=== PATIENT | female | born 1940 | race Caucasian/White ===

== ENCOUNTER 2016-11-01 12:09 | Inpatient (IN) | payer MEDICARE ==
[~2016-11-01] VITALS: Ht 170.2 cm; Wt 56.7 kg
[~2016-11-01 12:09] MED LIST: CLEOCIN HCL300 MG PO
[2016-11-01 13:13] LABS: BASOPHILS 0.2 % (0-2); EOSINOPHILS 3.5 % (0-7); HEMATOCRIT 36.6 % (36.0-48.0); HEMOGLOBIN 12.1 g/dL (12-16); IMMATURE GRANULOCYTES 0.5 % (0-5); LYMPHOCYTES 11.7 % (15-50); MCH 29.3 pg (26.0-34.0); MCHC 33.1 g/dL (31.0-37.0); MCV 88.6 fL (80.0-100.0); MEAN PLATELET VOLUME 8.5 fL (7.4-10.4); MONOCYTES 13.7 % (2-11); NEUTROPHILS 70.4 % (40-80); PLATELET COUNT 582 10x3/uL (130-400); RBC 4.13 10x6/uL (4.00-5.40); RDW 12.8 % (11.5-14.5); WBC 10.3 10x3/uL (4.8-10.8)
[2016-11-01 13:26] LABS: ALBUMIN 2.5 g/dL (3.4-5.0); ALKALINE PHOSPHATASE 71 U/L (46-116); ALT (SGPT) 12 U/L (10-68); BILIRUBIN - TOTAL 0.29 mg/dL (0.2-1.3); CALC OSMOLALITY 277 mosm/kg (275-300); CALCIUM 8.9 mg/dL (8.5-10.1); CARBON DIOXIDE 31.5 mmol/L (21.0-32.0); CHLORIDE - SERUM 102 mmol/L (98-107); CREATININE - SERUM 0.7 mg/dL (0.6-1.3); GLUCOSE 105 mg/dL (74-106); POTASSIUM - SERUM 3.6 mmol/L (3.5-5.1); PROTEIN - SERUM 6.5 g/dL (6.4-8.2); SODIUM 138 mmol/L (136-145); UREA NITROGEN 18 mg/dL (7-18); eGFR NON AFRICAN AMERICAN 86 mL/min (90-120)
[2016-11-01 16:24] LABS: APPEARANCE HAZY (CLEAR); BILIRUBIN NEGATIVE (NEGATIVE); COLOR YELLOW (YELLOW); GLUCOSE NEGATIVE (NEGATIVE); KETONE SMALL mg/dL (NEGATIVE); LEUKOCYTE ESTERASE TRACE (NEGATIVE); NITRITE NEGATIVE (NEGATIVE); PROTEIN NEGATIVE (NEGATIVE); SPECIFIC GRAVITY 1.015 (1.005-1.020); UROBILINOGEN NORMAL (NORMAL)
[2016-11-01 16:26] LABS: BACTERIA MODERATE /hpf (NONE SEEN); EPITHELIAL CELLS 0-5 /hpf (0-5); RED CELLS - URINE 0-5 /hpf (0-5); WHITE CELLS - URINE 0-5 /hpf (0-5)
[2016-11-01 20:00] VITALS: BP 103/58
[2016-11-01] MEDS ORDERED: PERCOCET 7.5/321 TAB PO (22:33)
[2016-11-01] MEDS ORDERED: NEURONTIN 300300 MG PO (22:33)
[2016-11-01] MEDS ORDERED: ALENDRONATE SOD35 MG PO (22:34)
--- NOTE | 2016-11-01 22:51 | NUR ---
MED REC, PHARMACY, AND ADULT HISTORY COMPLETED. PATIENT RECIEVED 4MG MORPHINE AT 2034 FOR BACK PAIN. IT WAS HELPFUL BUT WOKE UP WITH A C/O OF BACK SPASAMS. ER DOC CALLED AND 5MG VALIUM IM WAS ORDERED AND GIVEN.
[2016-11-01 23:52] VITALS: BP 126/73
[2016-11-02 03:58] VITALS: BP 121/75
--- NOTE | 2016-11-02 04:52 | NUR ---
RESTING QUIETLY WITH EYES CLOSED. NO SIGNS OF DISTRESS NOTED. BED IN LOWEST POSITION, CALL LIGHT IN REACH. BED RAILS UP X'S 2.
[2016-11-02 05:59] VITALS: BMI 19.6
--- NOTE | 2016-11-02 07:00 | NUR ---
PT REC'D FROM CLAUDIA FERGUSON. RESTING IN BED IN SUPINE POSITION. AAOX4. RATING CURRENT PAIN IN LOWER BACK 11/24. WILL REASSESS. REGULAR HEART RATE AND RHYTHM. LUNG SOUNDS CLEAR AND EQUAL BILAT. BOWEL SOUNDS ACTIVE X4 QUADS. PIV TO R AC FREE OF REDNESS AND SWELLING. REQUESTING "SOMETHING FOR SPASMS." TOLD PATIENT I WOULD CHECK HER MAR AND GIVE HER SOMETHING IF IT WAS ORDERED. BED LOW, CALL LIGHT IN REACH, DENIES NEEDS. CPOC.
[2016-11-02 08:44] LABS: BASOPHILS 0.2 % (0-2); HEMATOCRIT 36.7 % (36.0-48.0); IMMATURE GRANULOCYTES 0.9 % (0-5); LYMPHOCYTES 11.9 % (15-50); MCH 29.1 pg (26.0-34.0); MCHC 32.7 g/dL (31.0-37.0); MCV 89.1 fL (80.0-100.0); MONOCYTES 14.4 % (2-11); NEUTROPHILS 68.6 % (40-80); PLATELET COUNT 545 10x3/uL (130-400); RBC 4.12 10x6/uL (4.00-5.40); WBC 10.9 10x3/uL (4.8-10.8)
[2016-11-02 08:55] LABS: ALBUMIN 2.4 g/dL (3.4-5.0); ALKALINE PHOSPHATASE 68 U/L (46-116); ALT (SGPT) 10 U/L (10-68); BILIRUBIN - TOTAL 0.27 mg/dL (0.2-1.3); CALC OSMOLALITY 278 mosm/kg (275-300); CALCIUM 8.7 mg/dL (8.5-10.1); CHLORIDE - SERUM 102 mmol/L (98-107); CREATININE - SERUM 0.6 mg/dL (0.6-1.3); GLUCOSE 94 mg/dL (74-106); POTASSIUM - SERUM 4.2 mmol/L (3.5-5.1); PROTEIN - SERUM 5.7 g/dL (6.4-8.2); SODIUM 139 mmol/L (136-145); UREA NITROGEN 15 mg/dL (7-18); eGFR NON AFRICAN AMERICAN > 90 mL/min (90-120)
[2016-11-02 09:02] VITALS: BP 114/69
--- NOTE | 2016-11-02 09:35 | NUR ---
PRN FLEXERIL ADMINSTERED PER PT COMPLAINTS OF BACK SPASMS. WILL REASSESS. BOX ALARM APPLIED TO PT AT THIS TIME. EXPLAINED TO HER THAT SHE HAS TO WEAR THIS JUST DUE TO THE FACT THAT SHE IS ON NARCOTICS, IS WEAK DUE TO HER BACK PAIN, AND BECAUSE OF HER AGE. PT STATES SHE UNDERSTANDS. ASKED PT IF SHE COULD TOLERATE ME PUTTING ON HER SCD'S. PT STATED, "I'M DORSIFLEXING AND PLANTAR FLEXING. ISN'T THAT ENOUGH?" EXPLAINED TO PT THAT WE NEEDED TO HAVE SOMETHING FOR DVT PROPHYLAXIS SINCE SHE WAS NOT TAKING ANY TYPE OF MEDICATIONS FOR THAT. PT STATED SHE COULD NOT DO IT RIGHT NOW SINCE SHE WAS HURTING. SCD'S PLACED ON NIGHTSTAND AND I TOLD PT WE WOULD NEED TO LATER. BED LOW, CALL LIGHT IN REACH, DENIES NEEDS. CPOC.
[2016-11-02 12:44] VITALS: BP 130/73
--- NOTE | 2016-11-02 13:45 | NUR ---
ATTEMTPED TO CONTACT PER PT REQUEST. NO ANSWER, BUT VOICEMAIL LEFT.
[2016-11-02 15:36] VITALS: BP 120/70
--- NOTE | 2016-11-02 16:00 | NUR ---
PT RESTING IN BED WITH COMPLAINTS OF BACK SPASMS AT THIS TIME, INFORMED PTS NURSE AT THIS TIME. BED IN LOW POSITION AND CALL LIGHT WITHIN REACH. WILL CONTINUE TO MONITOR.
--- NOTE | 2016-11-02 16:45 | NUR ---
PRN MORPHINE ADMINISTERED PER PT COMPLAINTS OF 9/10 BACK PAIN. WILL REASSESS. RESTING IN BED IN SUPINE POSITION. BED LOW, CALL LIGHT IN REACH, DENIES NEEDS. CPOC.
[2016-11-02 19:00] VITALS: BP 138/67
[2016-11-03] VITALS: BP 134/65
--- NOTE | 2016-11-03 02:00 | NUR ---
PT RESTING QUIETLY, EYES CLOSED. RESP EVEN, UNLABORED. NO DISTRESS NOTED.
[2016-11-03 04:00] VITALS: BP 126/81
[2016-11-03 07:30] LABS: BASOPHILS 0.2 % (0-2); EOSINOPHILS 3.6 % (0-7); HEMATOCRIT 35.6 % (36.0-48.0); HEMOGLOBIN 11.5 g/dL (12-16); IMMATURE GRANULOCYTES 0.9 % (0-5); LYMPHOCYTES 10.4 % (15-50); MCH 28.8 pg (26.0-34.0); MCHC 32.3 g/dL (31.0-37.0); MCV 89.2 fL (80.0-100.0); MEAN PLATELET VOLUME 9.2 fL (7.4-10.4); MONOCYTES 11.9 % (2-11); PLATELET COUNT 544 10x3/uL (130-400); RBC 3.99 10x6/uL (4.00-5.40); RDW 13.1 % (11.5-14.5)
[2016-11-03 08:04] LABS: CALC OSMOLALITY 273 mosm/kg (275-300); CALCIUM 8.7 mg/dL (8.5-10.1); CARBON DIOXIDE 25.4 mmol/L (21.0-32.0); CHLORIDE - SERUM 101 mmol/L (98-107); CREATININE - SERUM 0.5 mg/dL (0.6-1.3); GLUCOSE 79 mg/dL (74-106); POTASSIUM - SERUM 3.4 mmol/L (3.5-5.1); SODIUM 137 mmol/L (136-145); UREA NITROGEN 14 mg/dL (7-18); eGFR NON AFRICAN AMERICAN > 90 mL/min (90-120)
--- NOTE | 2016-11-03 09:38 | NUR ---
PATIENT ALERT IN LOW ARENAS POSITION. PLACED ON BEDPAN PER REQUEST. INSTRUCTED TO PUSH CALL BUTTON WHEN FINISHED. STATES UNDERSTANDING. CALL LIGHT IN HAND. BED IN LOW POSITION. SIDE RAILS UP X2.
[2016-11-03 09:41] VITALS: BP 118/67
[2016-11-03 12:33] VITALS: BP 120/75
[2016-11-03 17:38] VITALS: BP 121/70
[2016-11-03 20:00] VITALS: BP 111/70
--- NOTE | 2016-11-03 22:35 | NUR ---
REC'D LYING FLAT IN BED. ALERT AND ORIENTED X4. REPORTED PAIN 10/10 IN BACK. WILL ADMIN PM/AM MEDS PRESCRIBED. INSTRUCTED TO CALL IF NEEDED ANYTHING, VERBALIZED UNDERSTANDING. WILL CONT TO MONITOR. DENIED FURTHER NEEDS AT THIS TIME.
[2016-11-04] VITALS: BP 124/68
--- NOTE | 2016-11-04 01:54 | NUR ---
PT RESTING QUIETLY, EYES CLOSED. RESP EVEN, UNLABORED. NO DISTRESS NOTED. CONTINUE CUSTOM SHOEMAKER'S PLAN OF CARE.
[2016-11-04 04:00] VITALS: BP 137/61
[2016-11-04 05:51] LABS: BASOPHILS 0.3 % (0-2); EOSINOPHILS 3.4 % (0-7); HEMOGLOBIN 11.6 g/dL (12-16); LYMPHOCYTES 10.2 % (15-50); MCH 28.9 pg (26.0-34.0); MCHC 32.2 g/dL (31.0-37.0); MCV 89.8 fL (80.0-100.0); MONOCYTES 14.1 % (2-11); PLATELET COUNT 508 10x3/uL (130-400); RBC 4.01 10x6/uL (4.00-5.40); WBC 11.3 10x3/uL (4.8-10.8)
[2016-11-04 06:12] LABS: CALC OSMOLALITY 270 mosm/kg (275-300); CALCIUM 9.2 mg/dL (8.5-10.1); CARBON DIOXIDE 27.4 mmol/L (21.0-32.0); CHLORIDE - SERUM 100 mmol/L (98-107); GLUCOSE 85 mg/dL (74-106); POTASSIUM - SERUM 3.7 mmol/L (3.5-5.1); SODIUM 136 mmol/L (136-145); UREA NITROGEN 13 mg/dL (7-18); eGFR NON AFRICAN AMERICAN 86 mL/min (90-120)
[2016-11-04 06:13] LABS: CREATININE - SERUM 0.7 mg/dL (0.6-1.3)
--- NOTE | 2016-11-04 07:15 | NUR ---
PATIENT IN BED WITH IV INTACT. ASSISTED OFF OF BEDPAN AT THIS TIME. COMPLAINTS OF PAIN TO LOWER BACK. STATED LINE ERECTOR APPRENTICE IS GOING TO SPEAK TO PHYSICIAN FOR MORE PAIN MEDS. CALL LIGHT WITHIN REACH.
--- NOTE | 2016-11-04 07:30 | NUR ---
PT ASSESSMENT COMPLETE NO ACUTE DISTRESS NOTED VOICES ALL NEEDS TO STAFF PT WITH INTRACTABLE BACK PAIN NOTED WILL TREAT FOR PAIN PER ORDER. AND DISCUSS PAIN RELEIF WITH RESORT HOUSEKEEPER TODAY PER REPORT OF BOTH PT AND NURSE FROM LAST SHIFT PT HAS SEVERE PAIN UNRELEIVED WITH PAIN MEDS
[2016-11-04 09:32] VITALS: BP 129/77
--- NOTE | 2016-11-04 11:28 | NUR ---
Rehab Note- Acute Rehab Prescreen order received. Reviewed the patient's medical record. Awaiting Neurosurgeon consult. Will follow at this time. Spoke with EBEN Aguila. Thank you for this referral! Priaynka Baum RN Clinical Liaison, [facility] Rehab
--- NOTE | 2016-11-04 11:34 | NUR ---
PT WITH INTRACTABLE BACK PAIN HAVING SPASMS NOT RELEIVED WITH PAIN MEDS OR FLEXERIL. ALL ADLS PER STAFF TOTAL CARE DUE TO PAIN.
--- NOTE | 2016-11-04 11:43 | NUR ---
Patient Name: DEBBY WRIGHT Admission Status: ER Accout number: [id number] Admission Date: 11-03-2016 : 1940 Admission Diagnosis: Attending: SARAH Current LOS: 1 Anticipated DC Date: 11-07-2016 Planned Disposition: Inpatient Rehab Primary Insurance: MEDICARE A & B Discharge Planning Comments: CM SPOKE WITH PATIENT REGARDING D/C NEEDS AND PLANS. PATIENT STATED SHE LIVES WITH HER SPOUSE (VIKRAM) AND HE WILL DRIVE HER HOME WHEN DISCHARGED HOME. PATIENT HAS 3 STEPS TO ENTER HOME AND STAIRCASE W/RAILS TO DOWNSTAIRS INSIDE HOME. PATIENT STATED SHE WAS INDEPENDENT BEFORE HER SURGERY AND HAS A WALKER, WHEELCHAIR, BS COMMODE, AND SHOWER CHAIR AT HOME. PATIENTS PCP IS DR. GUERRERO IN [place] AND [facility] AT [facility] IS HER PHARMACY. PATIENT HAD OP BACK SURGERY AT [facility] RECENTLY. PATIENT IS WANTING IP REHAB AT DISCHARGE. CM WILL CONTINUE TO FOLLOW PATIENT WITH D/C NEEDS AND PLANS. PCP DR. YOLANDA CASTRO AT [facility] [phone] VIKRAM (SPOUSE) [phone] Surveyor Geophysical Prospecting: Ayla Cochran Is the patient Alert and Oriented? Yes 0 * How many steps to enter\exit or inside your home? 3 0 * PCP DR. GUERRERO IN [place] 0 * Pharmacy [facility] 0 * Preadmission Environment Home with Family 0 * ADLs Independent 0 * Equipment Bedside Commode Shower Chair Walker Wheelchair 0 * List name and contact numbers for known caregivers / representatives who currently or will assist patient after discharge: VIKRAM (SPOUSE) [phone] 0 * Additional services required to return to the preadmission environment? Yes 0 * Can the patient safely return to the preadmission environment? Yes 0 * Has this patient been hospitalized within the prior 30 days at any hospital? No 0 Grand Total: 0
--- NOTE | 2016-11-04 11:43 | NUR ---
RECIEVED NEW ORDER FOR TORADOL GIVEN IV PER ORDER. TOLERATED WELL. WILL MONITOR EFFECTIVENESS.
[2016-11-04 11:58] VITALS: BP 143/77
[2016-11-04 15:29] VITALS: Ht 170.2 cm; Wt 56.7 kg
--- NOTE | 2016-11-04 17:18 | NUR ---
PT HAS RESTED WELL SINCE DOSING OF TORADOL. WILL MONITOR.
[2016-11-04 19:00] VITALS: BP 113/68
[2016-11-05] VITALS (10 sets, daily range): BP systolic 104–128; BP diastolic 57–73
--- NOTE | 2016-11-05 00:09 | NUR ---
REC'D LYING RESTING IN BED. ALERT AND ORIENTED X4. NO DISTRESS NOTED. IS WANTING SOMETHING FOR PAIN. WILL ADMIN MEDS PRESCRIBED. INSTRUCTED TO CALL IF NEEDED ANYTHING. WILL HAVE KYPHOPLASTY IN AM. CONSENTS ARE SIGNED AND ON CHART. DR. BRINK CAME BY AND SPOKE TO HER ABOUT THE PROCEDURE. WILL CONT TO MONITOR. BED LOW, LOCKED, CALL LIGHT IN REACH. ALARM ON.
[2016-11-05 06:13] LABS: BASOPHILS 0.2 % (0-2); EOSINOPHILS 3.2 % (0-7); HEMATOCRIT 34.1 % (36.0-48.0); HEMOGLOBIN 11.3 g/dL (12-16); IMMATURE GRANULOCYTES 0.4 % (0-5); LYMPHOCYTES 9.6 % (15-50); MCH 29.2 pg (26.0-34.0); MCHC 33.1 g/dL (31.0-37.0); MCV 88.1 fL (80.0-100.0); MONOCYTES 10.7 % (2-11); NEUTROPHILS 75.9 % (40-80); PLATELET COUNT 494 10x3/uL (130-400); RBC 3.87 10x6/uL (4.00-5.40); WBC 10.6 10x3/uL (4.8-10.8)
[2016-11-05 06:24] LABS: CALC OSMOLALITY 266 mosm/kg (275-300); CALCIUM 8.9 mg/dL (8.5-10.1); CHLORIDE - SERUM 100 mmol/L (98-107); CREATININE - SERUM 0.4 mg/dL (0.6-1.3); GLUCOSE 99 mg/dL (74-106); POTASSIUM - SERUM 3.4 mmol/L (3.5-5.1); SODIUM 134 mmol/L (136-145); UREA NITROGEN 11 mg/dL (7-18); eGFR NON AFRICAN AMERICAN > 90 mL/min (90-120)
--- NOTE | 2016-11-05 06:35 | NUR ---
EYES CLOSED RESPIRATIONS WITH EASE AND UNLABORED.
--- NOTE | 2016-11-05 11:31 | NUR ---
PT ASLEEP ON BACK IN BED RESP EVEN AND NONLABORED IV TO FOREARM PATENT AND INTACT AT THIS TIME SRX2 BED AT LOWEST SETTING CALL LIGHT WITHIN REACH WILL CONTINUED TO MONITOR
--- NOTE | 2016-11-05 15:09 | NUR ---
OT NOTE: ATTEMPTED TO SEE PT IN PM, HOWEVER, SHE WAS EXTREMELY DROWSY; UNABLE TO AROUSE PT
--- NOTE | 2016-11-05 20:00 | NUR ---
Received patient in bed, alert and oriented x 4, oxygen is not on at this time, is on room air, respirations easy and regular. Has three 1cm incisions on right knee, scabbed over, dry and each has a suture in place, all are open to air, no dressing. Incisions are well approximated, healing well. Denies any pain or discomfort at this time.
--- NOTE | 2016-11-06 00:36 | NUR ---
Given Tylenol 650mg po PRN and Robaxin 750mg po PRN at this time for back pain and right hip pain with spasms. Patient rates severity as 8/10. Will monitor for effectiveness.
--- NOTE | 2016-11-06 01:30 | NUR ---
Patient sleeping, eyes closed, respirations unlabored, PRNs given earlier deemed effective.
[2016-11-06 04:00] VITALS: BP 112/62
--- NOTE | 2016-11-06 04:00 | NUR ---
Given Morphine 4mg IV as patient states the pain and spasms in back and right hip have returned, cannot resettle to sleep. Rates severity as 7/10.
--- NOTE | 2016-11-06 05:00 | NUR ---
Patient resting quietly, drowsy and reports Morphine is effective for pain relief.
[2016-11-06 05:37] LABS: BASOPHILS 0.1 % (0-2); EOSINOPHILS 3.7 % (0-7); HEMOGLOBIN 10.5 g/dL (12-16); IMMATURE GRANULOCYTES 0.6 % (0-5); LYMPHOCYTES 10.7 % (15-50); MCH 29.2 pg (26.0-34.0); MCHC 32.8 g/dL (31.0-37.0); MCV 88.9 fL (80.0-100.0); MEAN PLATELET VOLUME 9.2 fL (7.4-10.4); MONOCYTES 11.9 % (2-11); PLATELET COUNT 508 10x3/uL (130-400); RDW 12.9 % (11.5-14.5); WBC 8.6 10x3/uL (4.8-10.8)
[2016-11-06 05:44] LABS: CALCIUM 8.4 mg/dL (8.5-10.1); CHLORIDE - SERUM 101 mmol/L (98-107); GLUCOSE 95 mg/dL (74-106); POTASSIUM - SERUM 3.8 mmol/L (3.5-5.1); SODIUM 137 mmol/L (136-145)
[2016-11-06 05:56] LABS: CALC OSMOLALITY 271 mosm/kg (275-300); CREATININE - SERUM 0.6 mg/dL (0.6-1.3); UREA NITROGEN 7 mg/dL (7-18); eGFR NON AFRICAN AMERICAN > 90 mL/min (90-120)
--- NOTE | 2016-11-06 07:40 | NUR ---
PT AOX4 RESP EVEN AND NONLABORED PT DENIES NEEDS AT THIS TIME IV TO LEFT FOREARM PATENT AND INTACT AT THIS TIME SRX2 BED AT LOWEST SETTING CALL LIGHT WITHIN REACH WILL CONTINUE TO MONITOR
[2016-11-06 09:33] VITALS: BP 121/76
[2016-11-06] MEDS ORDERED: ROCEPHIN 1 GM/D51 G1 IV (11:32)
[2016-11-06] MEDS ORDERED: DULCOLAX10 MG/SUPP RC (11:33)
[2016-11-06] MEDS ORDERED: PROTONIX40 MG PO (11:33)
[2016-11-06] MEDS ORDERED: ONDANSETRON4 MG/2 M3 IV (11:33)
[2016-11-06] MEDS ORDERED: COLACE100 MG PO (11:33)
[2016-11-06] MEDS ORDERED: ROBAXIN-750750 MG PO (11:34)
--- NOTE | 2016-11-06 13:06 | NUR ---
CM REASSESSMENT NOTE: PATIENT IS DISCHARGING TO IP REHAB TODAY.
[2016-11-06 13:40] VITALS: BP 96/55
--- NOTE | 2016-11-06 13:55 | NUR ---
OT NOTE: PT REPORTED THAT SHE WAS FATIGUED FROM SITTING UP IN WC; PT WAS ABLE TO PERFORM UE EXS; REPORTED PAIN WAS STILL THERE BUT SIGNIFICANTLY BETTER. PERFORMED EDGE OF BED SITTING WITH MIN ASSIST.
--- NOTE | 2016-11-06 17:06 | NUR ---
OT NOTE: PT COMPLETED BED MOB AND EOB SITTING BALANCE WITH SBA. PT COMPLETED BUE AROM EXS FOR INCREASED AX CATIA WITH FX AXS. PT COMPLETED SIMPLE GROOMING TASK WITH SET UP AT EOB. JEANETTE CARPENTER COTA/Taylor
[2016-11-06 17:15] VITALS: BP 107/56
--- NOTE | 2016-11-06 18:02 | NUR ---
PT TAKEN VIA WHEELCHAIR TO INPATIENT REHAB AT THIS TIME WITH LEFT FOREARM IV PATENT AND INTACT AT THIS TIME
== END 2016-11-06 18:03 | DRG 479 ==
LOC: D.ER 12:09 → D.MS 17:05 → OBSVTIME 17:05 → D.MS 17:05
PROVIDERS: Emergency Medicine; Neurological Surgery; ADMIT Emergency Medicine
PROC: 0PB43ZX Excision of Thoracic Vertebra, Percutaneous Approach, Diagnostic (ICD-10-PCS; 2016-11-05)
PROC: 0PU43JZ Supplement Thoracic Vertebra with Synthetic Substitute, Percutaneous Approach (ICD-10-PCS; 2016-11-05)
PROC: 0PS43ZZ Reposition Thoracic Vertebra, Percutaneous Approach (ICD-10-PCS; principal; 2016-11-05 07:30)
DX: M80.88XA Other osteoporosis with current pathological fracture, vertebra(e), initial encounter for fracture (principal); M54.5 Low back pain; E87.6 Hypokalemia; F17.200 Nicotine dependence, unspecified, uncomplicated

== ENCOUNTER 2016-11-06 18:10 | Inpatient (IN) | payer MEDICARE ==
[~2016-11-06] VITALS: Ht 170.2 cm; Wt 56.7 kg
[~2016-11-06 18:10] MED LIST changes: +ALENDRONATE SOD35 MG PO; +COLACE100 MG PO; +DULCOLAX10 MG/SUPP RC; +NEURONTIN 300300 MG PO; +ONDANSETRON4 MG/2 M3 IV; +PERCOCET 7.5/321 TAB PO; +PROTONIX40 MG PO; +ROBAXIN-750750 MG PO; +ROCEPHIN 1 GM/D51 G1 IV
--- NOTE | 2016-11-06 19:00 | NUR ---
RESTING IN BED, EYES CLOSED.
[2016-11-06 19:16] VITALS: BP 124/55; BMI 19.6
--- NOTE | 2016-11-06 20:20 | NUR ---
PATIENT AWAKE. REQUESTED BEDPAN TO URINATE. SAYS SHE CANNOT GET UP DESPITE REPORT FROM PREVIOUS SHIFT THAT SHE WAS A MOD ASSIST TRANSFER FROM W/C TO BED WHEN SHE ARRIVED ON UNIT AT 1810. PATIENT URINATED 150ML IN BEDPAN AND REMOVED IT HERSELF BEFORE CALLING ME BACK.
--- NOTE | 2016-11-06 21:05 | NUR ---
C/O PAIN LEVEL OF 8/10 IN HER BACK AND RIGHT LEG. REPOSITIONED PATIENT FOR COMFORT. GAVE HER PERCOCET 10/325 X1 TAB PO FOR HER PAIN WELL OTHER SCHEDULED HS MEDS. REFUSED COLACE DUE TO LOOSE BM TODAY.
--- NOTE | 2016-11-06 22:40 | NUR ---
ADMISSION ASSESSMENT AND HISTORY COMPLETE. ADMISSION DOCUMENTS SIGNED. DENIES FURTHER NEEDS.
--- NOTE | 2016-11-07 00:40 | NUR ---
RESTING IN BED, EYES CLOSED.
--- NOTE | 2016-11-07 02:10 | NUR ---
FOUND PATIENT AWAKE. SAYS SHE IS WET. PATIENT HAD URINATED ON TOP SHEET AND BLANKET WHICH SHE WAS LYING ON, WHICH WAS NOT SO WHEN I LAST ROUNDED AT 0040. CHANGED HER TOP SHEET AND BLANKET, WELL HER PINK PAD WHICH WAS BARELY MOIST. DENIES FURTHER NEEDS.
--- NOTE | 2016-11-07 03:55 | NUR ---
ASSISTED PATIENT WITH BEDPAN. URINATED 400ML.
--- NOTE | 2016-11-07 06:08 | NUR ---
ASSISTED PATIENT WITH BEDPAN. URINATED 200ML. GAVE PATIENT SCHEDULED MEDS WELL ROBAXIN 750MG PO FOR BACK SPASMS AND PERCOCET 10/325 X1 TAB PO FOR BACK AND RIGHT LEG PAIN. REPOSITIONED PATIENT HIGHER UP IN BED.
[2016-11-07 06:42] LABS: BASOPHILS 0.2 % (0-2); EOSINOPHILS 2.8 % (0-7); HEMATOCRIT 32.3 % (36.0-48.0); HEMOGLOBIN 10.7 g/dL (12-16); IMMATURE GRANULOCYTES 0.6 % (0-5); LYMPHOCYTES 8.2 % (15-50); MCH 28.8 pg (26.0-34.0); MCHC 33.1 g/dL (31.0-37.0); MCV 87.1 fL (80.0-100.0); MONOCYTES 11.2 % (2-11); PLATELET COUNT 490 10x3/uL (130-400); RBC 3.71 10x6/uL (4.00-5.40); WBC 10.6 10x3/uL (4.8-10.8)
[2016-11-07 07:13] LABS: CALCIUM 8.4 mg/dL (8.5-10.1); CARBON DIOXIDE 30.3 mmol/L (21.0-32.0); CHLORIDE - SERUM 100 mmol/L (98-107); CREATININE - SERUM 0.5 mg/dL (0.6-1.3); GLUCOSE 96 mg/dL (74-106); SODIUM 139 mmol/L (136-145); eGFR NON AFRICAN AMERICAN > 90 mL/min (90-120)
[2016-11-07 07:17] LABS: CALC OSMOLALITY 274 mosm/kg (275-300); UREA NITROGEN 5 mg/dL (7-18)
--- NOTE | 2016-11-07 08:15 | NUR ---
PT RESTING IN BED WITH EYES OPEN CALL LIGHT IN REACH NO PROBLEMS WILL MONITER
[2016-11-07 13:29] VITALS: Ht 170.2 cm; Wt 56.7 kg
--- NOTE | 2016-11-07 19:20 | NUR ---
RESTING QUIETLY IN BED, EYES CLOSED.
--- NOTE | 2016-11-07 19:50 | NUR ---
ASSISTED PATIENT UP TO BR TO URINATE AND THEN BACK TO BED.
[2016-11-07 20:50] VITALS: BP 123/72
--- NOTE | 2016-11-07 20:50 | NUR ---
ASSESSMENT AND HS MEDS COMPLETE. REFUSED SCHEDULED COLACE. GAVE PATIENT PERCOCET 10/325 X1 TAB AND ROBAXIN 750MG PO FOR PAIN LEVEL OF 8/10 IN HER BACK AND TO A LESSER EXTENT IN HER RIGHT LEG. SAYS RIGHT LEG PAIN IS LESS TONIGHT THAN IT WAS LAST NIGHT.
--- NOTE | 2016-11-07 22:20 | NUR ---
RESTING IN BED, EYES CLOSED. NO DISTRESS NOTED.
--- NOTE | 2016-11-08 00:15 | NUR ---
PATIENT AWAKE. DENIES NEEDS.
--- NOTE | 2016-11-08 02:15 | NUR ---
PATIENT CAME OUT TO NURSING STATION IN W/C WHILE I WAS IN ANOTHER ROOM. CONFUSED AND DISORIENTED TO PLACE. ASSISTED HER TO BR COMMODE. WHILE SHE WAS THERE I INSTALLED AHSAN BED ALARM ON HER BED. ORIENTED HER TO THE USE OF THE BED ALARM AND HOW IT SOUNDS. REMINDED HER TO CALL FOR ASSIST TO BR AND TO NOT ATTEMPT OOB ALONE DUE TO STRAIN ON HER NEWLY OPERATED SPINE AND HER HIGH RISK TO FALL.
--- NOTE | 2016-11-08 04:25 | NUR ---
ASSISTED PATIENT UP TO BR COMMODE AND BACK TO BED. STILL A BIT CONFUSED. WAS SHOUTING, "I NEED HELP," JUST BEFORE I ENTERED ROOM.
--- NOTE | 2016-11-08 06:00 | NUR ---
GAVE PATIENT SCHEDULED MEDS. ALSO GAVE HER PERCOCET 10/325 X1 TAB PO FOR PAIN LEVEL OF 7/10 IN HER BACK AND RIGHT LEG.
--- NOTE | 2016-11-08 07:58 | NUR ---
PATIENT IS ALERT/ORIENT. SITTING UP IN BED TO EAT BREAKFAST. CALL LIGHT WITHIN REACH. VOICES NO NEEDS AT THIS TIME. AHSAN ALARM ON.
--- NOTE | 2016-11-08 08:11 | NUR ---
SITTING UP EATING BREAKFAST. DENIES NEEDS. CALL LIGHT IN REACH
--- NOTE | 2016-11-08 08:55 | NUR ---
PRN ROBAXIN GIVEN FOR MUSCLE CRAMPING.
[2016-11-08 09:02] VITALS: BP 122/67
--- NOTE | 2016-11-08 13:58 | NUR ---
PATIENT IN REHAB ROOM. WORKING WITH PHYSICAL THERAPIST. DENIES ANY PAIN/DISC. PATIENT IS WALKING WITH WHEELED WALKER AND GIAT BELT UP AND DOWN THE HALLWAY
--- NOTE | 2016-11-08 15:46 | NUR ---
PRN PERCOCET GIVEN FOR BACK PAIN PER PATIENT REQUEST
--- NOTE | 2016-11-08 19:20 | NUR ---
IN BED, RESTING QUIETLY. NO DISTRESS NOTED.
[2016-11-08 20:27] VITALS: BP 127/62
--- NOTE | 2016-11-08 22:00 | NUR ---
ASSESSMENT AND HS MEDS COMPLETE. GAVE PATIENT PERCOCET 10/325 X1 TAB PO FOR PAIN LEVEL OF 8/10 IN BACK AND RIGHT LEG. REFUSED COLACE.
--- NOTE | 2016-11-09 00:05 | NUR ---
RESTING QUIETLY IN BED ON LEFT SIDE. EYES CLOSED.
--- NOTE | 2016-11-09 02:15 | NUR ---
RESTING IN BED, EYES CLOSED.
--- NOTE | 2016-11-09 04:45 | NUR ---
ASSISTED PATIENT UP TO BR TO VOID, AND THEN BACK TO BED. DENIES FURTHER NEEDS.
--- NOTE | 2016-11-09 06:25 | NUR ---
ASSISTED PATIENT UP TO BR AND BACK TO BED. GAVE HER PERCOCET 10/325 X1 TAB PO FOR BACK AND RIGHT LEG PAIN OF LEVEL 9/10, ALONG WITH HER SCHEDULED MEDS.
--- NOTE | 2016-11-09 07:30 | NUR ---
PATIENT ALERT/ORIENT X4. CALL LIGHT WITHIN REACH. VOICES NO NEEDS AT THIS TIME.
[2016-11-09 08:00] VITALS: BP 120/57
--- NOTE | 2016-11-09 10:37 | NUR ---
sitting up in chair.cl in reach.
--- NOTE | 2016-11-09 10:45 | NUR ---
PATIENT IN REHAB ROOM. WORKING WITH OCCUPATIONAL THERAPIST. DENIES ANY PAIN/DISC AT THIS TIME.
--- NOTE | 2016-11-09 12:22 | NUR ---
PATIENT C/O OF A HEADACHE AFTER THERAPY. PRN OXYCONDONE 10MG GIVEN
--- NOTE | 2016-11-09 13:45 | NUR ---
STARTED IV RIGHT WRIST 20G X1 ATTEMPT. DRESSING WITH DATE AND TIME INTACT. IV FLUSHED WITH 10ML NS AND SALINE LOCKED WITH SWAB CAP. PT OFFERS NO COMPLAINTS. DC LEFT WRIST SL IV CATH TIP INTACT. 2X2 GAUZE PRESSURE DRESSING APPLIED. CALL LIGHT IN REACH, BED LOW.
--- NOTE | 2016-11-09 15:44 | NUR ---
PATIENT BACK IN BED AFTER THERAPY. ROCEPIN RUNNING RIGHT WRIST PERIPHERAL LINE IV.
--- NOTE | 2016-11-09 16:25 | NUR ---
DR. Alexandre PERDOMO INTO SEE PATIENT. NEW ORDERS RECEIVED.
--- NOTE | 2016-11-09 19:15 | NUR ---
PT. IN BED WITH HOB UP FOR COMFORT REQUESTING TO USE BR TO URINATE. ASSISTED WITH PLACEMENT OF ASPEN BACK BRACE, THEN TO W/C, THEN TO BR. ASSISTED BACK TO BED AND HAD TO REMIND PT. TO LEAVE BACK BRACE ON UNTIL SHE WAS BACK IN BED. PT. POSITIONED TO COMFORT BUT SHE IS STILL UNCOMFORTABLE. ASSESSMENT COMPLETED. NO VOICED NEEDS AT THIS TIME AND HER CALL LIGHT IS WITHIN REACH.
[2016-11-09 19:55] VITALS: BP 114/64
--- NOTE | 2016-11-09 23:03 | NUR ---
PT. IN BED WITH HOB UP FOR COMFORT WITH EYES CLOSED AND RESP. EVEN. CALL LIGHT WITHIN REACH.
--- NOTE | 2016-11-10 03:00 | NUR ---
PT. IN BED WITH HOB UP FOR COMFORT WITH EYES CLOSED AND RESP. EVEN. CALL LIGHT WITHIN REACH.
--- NOTE | 2016-11-10 08:09 | NUR ---
IN BED.CL IN REACH.
[2016-11-10 08:31] VITALS: BP 104/69
--- NOTE | 2016-11-10 08:44 | NUR ---
PT UP IN BEDSIDE CHAIR EATING BREAKFAST TOLERATING WELL WILL MONITER
[2016-11-10] MEDS ORDERED: FENOGLIDE40 MG PO (13:54)
--- NOTE | 2016-11-10 14:52 | NUR ---
PT RESTING IN BED WITH EYES OPEN CALL LIGHT IN REACH NO PROBLEMS WILL MONITER
--- NOTE | 2016-11-10 19:15 | NUR ---
PT. IN BED WITH HOB UP FOR COMFORT. ASSESSMENT COMPLETED. NO VOICED NEEDS AT THIS TIME AND HER CALL LIGHT IS WITHIN REACH.
--- NOTE | 2016-11-10 19:15 | NUR ---
PT. IN BED WITH HOB UP FOR COMFORT AND IS WATCHING TV. ASSESSMENT COMPLETED. NO VOICED NEEDS AT THIS TIME AND HER CALL LIGHT IS WITHIN REACH.
[2016-11-10 19:50] VITALS: BP 125/69
--- NOTE | 2016-11-10 23:09 | NUR ---
PT. IN BED WITH HOB UP FOR COMFORT WITH EYES CLOSED AND RESP. DEEP AND EVEN. CALL LIGHT IS WITHIN REACH.
--- NOTE | 2016-11-11 03:06 | NUR ---
PT. IN BED WITH HOB UP FOR COMFORT WITH EYES CLOSED AND RESP. EVEN. CALL LIGHT WITHIN REACH.
[2016-11-11 06:05] LABS: BASOPHILS 0.2 % (0-2); EOSINOPHILS 2.3 % (0-7); HEMATOCRIT 31.2 % (36.0-48.0); HEMOGLOBIN 10.3 g/dL (12-16); IMMATURE GRANULOCYTES 0.3 % (0-5); LYMPHOCYTES 11.8 % (15-50); MCH 28.8 pg (26.0-34.0); MCV 87.2 fL (80.0-100.0); MEAN PLATELET VOLUME 9.2 fL (7.4-10.4); MONOCYTES 13.1 % (2-11); NEUTROPHILS 72.3 % (40-80); PLATELET COUNT 473 10x3/uL (130-400); RBC 3.58 10x6/uL (4.00-5.40); RDW 13.3 % (11.5-14.5); WBC 9.5 10x3/uL (4.8-10.8)
[2016-11-11 06:23] LABS: CALC OSMOLALITY 276 mosm/kg (275-300); CALCIUM 9.2 mg/dL (8.5-10.1); CARBON DIOXIDE 28.9 mmol/L (21.0-32.0); CHLORIDE - SERUM 102 mmol/L (98-107); CREATININE - SERUM 0.6 mg/dL (0.6-1.3); GLUCOSE 106 mg/dL (74-106); SODIUM 140 mmol/L (136-145); UREA NITROGEN 8 mg/dL (7-18); eGFR NON AFRICAN AMERICAN > 90 mL/min (90-120)
--- NOTE | 2016-11-11 07:17 | NUR ---
RESTING QUIETLY IN BED. NO S/S DISTRESS. CALL LIGHT IN REACH
--- NOTE | 2016-11-11 08:45 | NUR ---
PT RESTING IN BED WITH EYES OPEN CALL LIGHT IN REACH NO PROBLEMS WILL MONITER
[2016-11-11 08:59] VITALS: BP 130/76
--- NOTE | 2016-11-11 14:14 | NUR ---
PT RESTING IN BED WITH EYES OPEN CALL LIGHT IN REACH WILL MONITER
--- NOTE | 2016-11-11 19:00 | NUR ---
IN BED, AWAKE. LYING ON LEFT SIDE. S.O. VISITING AT BEDSIDE.
--- NOTE | 2016-11-11 19:00 | NUR ---
ASSISTED PATIENT UP TO BR TO URINATE, AND THEN BACK TO BED.
--- NOTE | 2016-11-11 21:20 | NUR ---
IN BED, RESTING QUIETLY, EYES CLOSED.
[2016-11-11 22:05] VITALS: BP 138/66
--- NOTE | 2016-11-11 22:05 | NUR ---
ASSESSMENTS AND HS MEDS COMPLETE. GAVE PATIENT PERCOCET 10/325 X1 TAB PO FOR EXPRESSED PAIN LEVEL OF 10/10 IN HER BACK AND RIGHT HIP. ALSO OBTAINED ORDER AND GAVE PATIENT SENNOKOT-2 X2 TABS PO FOR NO BM REPORTED BY PATIENT OR STAFF SINCE 11/06.
--- NOTE | 2016-11-12 00:05 | NUR ---
AWAKE. DENIES NEEDS.
--- NOTE | 2016-11-12 02:15 | NUR ---
RESTING IN BED, EYES CLOSED.
--- NOTE | 2016-11-12 04:20 | NUR ---
ASSISTED PATIENT UP TO BR COMMODE, AND THEN BACK TO BED.
--- NOTE | 2016-11-12 06:20 | NUR ---
ASSISTED PATIENT UP TO COMMODE AND BACK. GAVE HER HS MEDS. D/C'D 20GA S/L FROM RIGHT WRIST/LOWER FOREARM DUE TO LOSS OF PATENCY. IV ROCEPHIN ORDER PREVIOUSLY D/C'D. HAS NO FURTHER IV MED ORDERS.
[2016-11-12 07:00] VITALS: BP 124/77
[2016-11-12 07:20] LABS: CALC OSMOLALITY 275 mosm/kg (275-300); CALCIUM 9.5 mg/dL (8.5-10.1); CARBON DIOXIDE 27.7 mmol/L (21.0-32.0); CHLORIDE - SERUM 101 mmol/L (98-107); CREATININE - SERUM 0.6 mg/dL (0.6-1.3); GLUCOSE 107 mg/dL (74-106); SODIUM 139 mmol/L (136-145); UREA NITROGEN 8 mg/dL (7-18); eGFR NON AFRICAN AMERICAN > 90 mL/min (90-120)
--- NOTE | 2016-11-12 07:20 | NUR ---
LYING IN BED RESTING QUIETLY. OFFERS NO COMPLAINTS. CALL LIGHT IN REACH. WILL CONTINUE TO MONITOR
[2016-11-12 07:21] LABS: POTASSIUM - SERUM 3.6 mmol/L (3.5-5.1)
[2016-11-12 08:00] VITALS: BP 124/77
--- NOTE | 2016-11-12 11:02 | NUR ---
SITTING UP IN BED RESTING COMFORTABLY. OFFERS NO COMPLAINTS. CALL LIGHT IN REACH
--- NOTE | 2016-11-12 16:00 | NUR ---
STARTED IV LEFT WRIST 22G X3 ATTEMPTS. FLUSHES WITHOUT DIFFICULTY. DRESSING C/D/I. OFFERS NO COMPLAINTS. CALL LIGHT IN REACH
--- NOTE | 2016-11-12 16:30 | NUR ---
TRANSPORTED VIA WC BY IMAGING OFF FLOOR FOR CT
--- NOTE | 2016-11-12 16:46 | NUR ---
RECIEVED BACK ON FLOOR BY IMAGING VIA W/C
--- NOTE | 2016-11-12 18:17 | NUR ---
SITTING UP IN BED C/O OF PAIN IN BACK AND RLE 11/24 REQUEST SOMETHING FOR PAIN. WILL ADMINISTER DILAUDID 2MG
--- NOTE | 2016-11-12 20:05 | NUR ---
ASSISTED PT TO BATHROOM AND BACK TO BED.
[2016-11-12 22:09] VITALS: BP 110/67
--- NOTE | 2016-11-13 01:48 | NUR ---
RESTING IN BED WITH EYES CLOSED. LAYING IN LEFT SIDE. IV TO LEFT WRIST PATENT WITH DRESSING INTACT. CALL LIGHT AND OVERBED TABLE IN REACH.
--- NOTE | 2016-11-13 03:24 | NUR ---
REST QUIETLY IN BED, EYE CLOSE, BED LOW, CALL LIGHT WITHIN REACH.
[2016-11-13 06:45] LABS: BASOPHILS 0.2 % (0-2); EOSINOPHILS 1.5 % (0-7); HEMATOCRIT 35.6 % (36.0-48.0); HEMOGLOBIN 11.7 g/dL (12-16); IMMATURE GRANULOCYTES 0.3 % (0-5); LYMPHOCYTES 11.4 % (15-50); MCH 28.7 pg (26.0-34.0); MCHC 32.9 g/dL (31.0-37.0); MCV 87.5 fL (80.0-100.0); MEAN PLATELET VOLUME 9.4 fL (7.4-10.4); NEUTROPHILS 74.6 % (40-80); PLATELET COUNT 522 10x3/uL (130-400); RBC 4.07 10x6/uL (4.00-5.40); RDW 13.6 % (11.5-14.5); WBC 11.6 10x3/uL (4.8-10.8)
[2016-11-13 06:58] LABS: ALBUMIN 2.5 g/dL (3.4-5.0); ALKALINE PHOSPHATASE 91 U/L (46-116); ALT (SGPT) 13 U/L (10-68); CALC OSMOLALITY 271 mosm/kg (275-300); CARBON DIOXIDE 28.4 mmol/L (21.0-32.0); CHLORIDE - SERUM 99 mmol/L (98-107); CREATININE - SERUM 0.7 mg/dL (0.6-1.3); GLUCOSE 105 mg/dL (74-106); POTASSIUM - SERUM 3.9 mmol/L (3.5-5.1); PROTEIN - SERUM 6.9 g/dL (6.4-8.2); SODIUM 137 mmol/L (136-145); UREA NITROGEN 8 mg/dL (7-18); eGFR NON AFRICAN AMERICAN 86 mL/min (90-120)
[2016-11-13 08:00] VITALS: BP 103/64
--- NOTE | 2016-11-13 08:00 | NUR ---
IN BED.DENIES NEEDS.CL IN REACH.
--- NOTE | 2016-11-13 08:12 | NUR ---
PATIENT IS ALERT/ORIENT X4. CALL LIGHT WITHIN REACH. USING CALL LIGHT FOR NEEDS. PRN PAIN MEDICATION GIVEN PER REQUEST FROM PATIEN FOR BACK PAIN. IN ROOM WITH PATIENT. WAITING TO SPEACK WITH DR MACIAS.
--- NOTE | 2016-11-13 09:03 | RHP ---
PATIENT: DEBBY WRIGHT MEDICAL RECORD: [id number] ACCOUNT: [id number] LOCATION:[facility] : 40 ADMISSION DATE: 11/06/16 REHABILITATION HISTORY AND PHYSICAL EXAMINATION POST ADMISSION PHYSICIAN EXAMINATION DATE OF ADMISSION: 11/06/2013. ADMITTING DIAGNOSES: Intractable back pain status post kyphoplasty to T12 HISTORY OF PRESENT ILLNESS: The patient admitted to inpatient rehab for pain with intractable back pain, she is status post kyphoplasty at T12. She is a 76-year-old female patient that had a back pain, so severe for the previous 4-6 weeks, it gotten intolerable. She had a recent right knee surgery and scope for meniscal injury. She is receiving home health and was accompanied by home health nurse the ED due to increased amount of pain that she was experiencing. She was found to have an MRI of her back, which showed a compression deformity at T12 of vertebral body, suggesting an acute compression deformity. She had a remote L1 compression deformity also. She was seen by neurosurgeon and has undergone kyphoplasty. She lives at home with her and had become weak and unable to take care of herself due to increased pain. She was independent with mobility and ADLs prior to this. She is currently a moderate assist for ADLs and moderate assist to total assist for mobility. She plans to return home and get back to her prior level of function if possible[place] COMORBIDITIES: In this patient include an intractable back pain, hypokalemia, leukocytosis, osteoporosis, compression fracture and tobacco use. PAST MEDICAL HISTORY: Significant osteoporosis, chronic back pain, and smoker. PAST SURGICAL HISTORY: Includes cataract and a meniscal repair. ALLERGIES: No known drug allergies. CURRENT MEDICATIONS: Include Eliquis 2.5 mg b.i.d., Protonix 40 mg q.12 hours, Levaquin 750 q.4 hours, prednisone tapering Dosepak. She is on Tessalon Perles 200 mg t.i.d. p.r.n. cough, Bumex 0.5 daily, tramadol 50 mg q.6 hours p.r.n., Neurontin 300 mg t.i.d., metoprolol 25 mg b.i.d. HABITS: She does have a history of tobacco use. FAMILY HISTORY: Noncontributory. SOCIAL HISTORY: The patient hopes to return back home with her as above. REVIEW OF SYSTEMS: GENERAL: She does complain of weakness. HEENT: She denies cold, cough, or congestion. CARDIOVASCULAR: She denies chest pain. PHYSICAL EXAMINATION: VITAL SIGNS: Stable and afebrile. GENERAL: Elderly female in no acute distress, alert upon exam. HISTORY AND PHYSICAL [id number] DEBBY WRIGHT HEENT: Normocephalic and atraumatic. Mucosa moist. NECK: Supple with no lymphadenopathy. LUNGS: Clear. HEART: Regular rate and rhythm. ABDOMEN: Benign. EXTREMITIES: No clubbing, cyanosis or edema. NEUROLOGIC: Seems intact. LABORATORY DATA: Her white count is 4.1, H&H of 9 and 29, and platelet count was noted to be 162. Her sodium is 141, potassium 3.7. BUN and creatinine of 14 and 0.7, blood sugar is noted to be 98. ASSESSMENT: This is a 76-year-old female patient admitted to the rehab with a working diagnosis of compression fracture and intractable back pain, status post kyphoplasty. The patient has potential to make improvement. We instituted the following multidisciplinary therapies including to, but not limited to physical, occupational, respiratory, speech, nutritional services, prosthetics and orthotics. Given her complex condition and risk for more complications, rehabilitation services cannot be provided at a low level of care such as care home facility. PLAN: 1. Admit to [facility] rehab for intensive inpatient therapy to include the following disciplines: A. Physical therapy to improve gait, all transfer skills and bed mobility to a modified independent level. B. Occupational therapy to improve activities of daily living to a modified independent level. C. Case management to assist with discharge planning and placement options. D. Nutrition to assist with nutritional needs. E. Rehabilitation nursing to assist in monitoring the patient's underlying medical conditions and to assist with any type of bowel or bladder management. 2. The patient's current medications and medical care will be continued. 3. The patient will be placed on standard fall precautions. 4. The patient's estimated length of stay is approximately 7-10 days. 5. Discuss this patient during care team staff meeting this week. TRANSINT:[id number] Voice Confirmation ID: [id number] DOCUMENT ID: [id number] ESTRELLITA notes whether there has been none or any medical/functional change since admission: - ESTRELLITA attests patient continues to be appropriate for IRF: - HISTORY AND PHYSICAL [id number] DEBBY WRIGHT SCOTT MD at 0903 CC: [id number] DICTATION DATE: 11/07/16841 ASSOCIATE DIRECTOR OF DEVELOPMENT: 11/07/16 0900 ADM IN [place] [id number] [place] [id number]
--- NOTE | 2016-11-13 10:18 | NUR ---
DR MACIAS AND DR Alexandre PERDOMO INTO SEE PATIENT. NEW ORDERS RECIEVED TO DISCHARGE PATIENT FROM REHAB. ADMITT TO MED SURG. UNDER DR RUIZ AND DR MACIAS.
--- NOTE | 2016-11-13 12:16 | NUR ---
DISCHARGED ORDER FAXED TO HOUSE SUPPERVISOR. WAITING FOR ROOM NUMBER.
--- NOTE | 2016-11-13 12:45 | NUR ---
PATIENT TO BE DISCHARGED FROM REHAB AND ADMITTED TO ROOM 2229. ROOM IS STILL OCCUPIED. DR MACIAS HAS PUT IN ORDERS TO BE DONE ONCE PATIENT IS MOVED TO 9/ CT LUNG BIOSPY/MR BRAIN W/WO CONTRAST NM BONE SCAN WHOLE BODY.
--- NOTE | 2016-11-13 13:00 | NUR ---
PRN PAIN MEDICATION GIVEN FOR BACK PAIN PER PATIENT REQUEST
--- NOTE | 2016-11-13 15:36 | NUR ---
REPORT GIVEN TO KESHA JACOBS. PATIENT TAKEN UP TO ROOM 2229 BY STAFF.
== END 2016-11-13 15:37 | disposition home health service (06) | DRG 561 ==
LOC: D.REHAB 18:10
PROVIDERS: Internal Medicine Hematology & Oncology; ADMIT Emergency Medicine
DX: S22.089D Unspecified fracture of T11-T12 vertebra, subsequent encounter for fracture with routine healing (principal); M54.6 Pain in thoracic spine; E87.6 Hypokalemia; D72.829 Elevated white blood cell count, unspecified; M81.0 Age-related osteoporosis without current pathological fracture; F17.200 Nicotine dependence, unspecified, uncomplicated

== ENCOUNTER 2016-11-13 15:52 | Inpatient (IN) | payer MEDICARE ==
[~2016-11-13] VITALS: Ht 170.2 cm; Wt 56.7 kg
--- NOTE | ~2016-11-13 | HEMODYNAMI ---
PATIENT:DEBBY WRIGHT MEDICAL RECORD: [id number] : 40 LOCATION:[facility] D.2229 ADMISSION DATE: 11/13/16 Generatedon:11/20/201610:53 Patient name: DEBBY WRIGHT Patient #: [id number] SSN: DO B: 1940 Date of study: 11/20/2016 Page: Of Hemodynamic Procedure Report Patient Data Patient Demographics Procedure consent was obtained First Name: DEBBY Gender: Female Last Name: KYLE : 1940 Patient #: [id number] Age: 76 year(s) Race: Unknown Additional ID: [id number] Contact details [address]: [address] [place] [address] State: [place] City: [place] Zip code: [address] Admission Admission Data Admission Date: 11/13/2016 Admission Time: 15:52 Room #: D.2229 Procedure Procedure Types Cath Procedure Peripheral Cath Diagnostic Procedure Miscellaneous Procedure Description Procedure Date Procedure Date: 11/20/2016 Procedure Start Time: 8:50 Procedure Staff Name Function Marlon David MD Performing Physician Louisa Interiano RT Scrub Abhishek Mcnally RT Monitor Naresh Morgan MD Additional personnel Procedure Data Cath Procedure Fluoroscopy Diagnostic fluoroscopy Total fluoroscopy Time: time: 19.1 min 19.1 min Diagnostic fluoroscopy Total fluoroscopy dose: 507 dose: 507 mGy mGy Contrast Material Contrast Material Type Amount (ml) Isovue 300 200 Entry Location Entry Primary Successful Side Size Upsize Upsize Entry Closure Succes sful Closure Location (Fr) 1 (Fr) 2 (Fr) Remarks Device Remarks Femoral Left 5 Fr Exoseal artery Diagnostic catheters Device Type Used For End Catheter Placement Merit ULTRA BOLUS FLUSH 5Fr 65CM catheter Procedure Medications Medication Administration Route Dosage Nitroglycerin IC/IA I.A. 100 Hemodynamics Rest Heart Rate: 97 (bpm) Snapshots Pre Cath Intra NCS Post Cath Vital Signs Time Heart Resp SPO2 NIBP (mmHg) Rhythm Pain Sedation Rate (ipm) (%) Status Level (bpm) 8:29:49 96 16 128/73(106) NSR 0 (11) 10(A) , No pain 8:33:57 94 11 100 116/70(95) NSR 0 (11) 10(A) , No pain 8:38:07 95 21 98/60(82) NSR 0 (11) 10(A) , No pain 8:42:06 95 15 85 110/64(85) NSR 0 (11) 10(A) , No pain 8:46:12 94 15 100 106/62(89) NSR 0 (11) 10(A) , No pain 8:50:16 93 14 100 101/61(81) NSR 0 (11) 10(A) , No pain 8:54:22 94 13 100 84/48(66) NSR 0 (11) 10(A) , No pain 8:58:17 94 15 100 92/59(71) NSR 0 (11) 10(A) , No pain 9:02:17 94 13 100 101/60(74) NSR 0 (11) 10(A) , No pain 9:06:20 94 14 99 92/53(67) NSR 0 (11) 10(A) , No pain 9:10:22 92 12 99 95/49(76) NSR 0 (11) 10(A) , No pain 9:14:22 90 14 100 98/59(75) NSR 0 (11) 10(A) , No pain 9:18:24 87 13 100 101/61(82) NSR 0 (11) 10(A) , No pain 9:22:25 86 13 107/61(85) NSR 0 (11) 10(A) , No pain 9:26:31 86 13 102/59(76) NSR 0 (11) 10(A) , No pain 9:31:18 93 18 99 125/72(102) NSR 0 (11) 10(A) , No pain 9:35:28 93 15 100 121/60(96) NSR 0 (11) 10(A) , No pain 9:39:37 90 13 111/60(93) NSR 0 (11) 10(A) , No pain 9:43:45 87 12 112/52(81) NSR 0 (11) 10(A) , No pain 9:47:53 86 12 107/54(79) NSR 0 (11) 10(A) , No pain 9:51:59 86 14 105/57(89) NSR 0 (11) 10(A) , No pain 9:56:05 86 13 105/54(77) NSR 0 (11) 10(A) , No pain 10:00:09 87 13 106/55(85) NSR 0 (11) 10(A) , No pain 10:04:12 92 14 100 104/57(81) NSR 0 (11) 10(A) , No pain 10:08:16 91 12 100 103/59(87) NSR 0 (11) 10(A) , No pain 10:12:18 90 14 100 108/62(85) NSR 0 (11) 10(A) , No pain 10:16:24 89 12 100 102/57(83) NSR 0 (11) 10(A) , No pain 10:20:25 88 13 100 114/65(93) NSR 0 (11) 10(A) , No pain 10:24:29 90 14 100 119/71(96) NSR 0 (11) 10(A) , No pain 10:28:33 91 9 100 122/75(104) NSR 0 (11) 10(A) , No pain 10:32:39 91 13 100 131/71(105) NSR 0 (11) 10(A) , No pain 10:36:48 90 14 100 119/71(102) NSR 0 (11) 10(A) , No pain 10:40:54 88 15 121/66(99) NSR 0 (11) 10(A) , No pain 10:45:02 89 16 125/66(105) NSR 0 (11) 10(A) , No pain 10:49:10 91 9 100 137/69(99) NSR 0 (11) 10(A) , No pain 10:53:07 128/114(119) NSR 0 (11) 10(A) , No pain Medications Time Medication Route Dose Verified Delivered Reason Notes Effectiv eness by by 10:01:44 Nitroglycerin I.A. 100 Marlon used for IC/IA Frankie procedure Procedure Log Time Note 8:20:26 Abhishek Mcnally RT (R) (CV) sent for patient. Start room use. 8:20:50 Time tracking: Regular hours 8:20:55 Plan of Care:Hemodynamics will remain stable., Cardiac rhythm will remain stable., Comfort level will be maintained., Respiratory function will remain adequate., Patient/ family verbilizes understanding of procedure., Procedure tolerated without complication., Recovers from procedure without complications.. 8:21:00 Patient received from Med/Surg to IR Alert and oriented. Tansferred to table in Supine position. 8:21:02 Correct patient and procedure confirmed by team. 8:21:04 Signed procedure consent form obtained from patient. 8:21:05 ECG and BP/O2 sat monitors applied to patient. 8:21:06 - 8:21:07 Pre-procedure instructions explained to patient. 8:21:09 Pre-op teaching completed and patient verbalized understanding. 8:21:13 - 8:21:29 SEE ANESTHESIA FOR PRE PROCEDURE TIVA 8:21:30 - 8:27:05 Use device set IR Diagnostic 8:27:07 Sterile Angiographic Pack opened to sterile field. 8:27:09 Acist Manifold opened to sterile field. 8:27:09 Bag Decanter opened to sterile field. 8:27:10 Acist Hand Control opened to sterile field. 8:27:11 Acist Syringe opened to sterile field. 8::39 Vital chart was started 8:28:40 Baseline sample Acquired. 8::43 Rhythm: sinus rhythm 8::45 Full Disclosure recording started 8:39:28 EMANUEL WORKMAN HERE FROM ANESTHESIA 8:49:37 Physician arrived 8:49:37 --------ALL STOP TIME OUT------ 8:49:37 Final Timeout: patient, procedure, and site verified with staff and physician. All members of the team are in agreement. 8:49:41 Left groin site verified by team. 8:49:46 Physical assessment completed. ASA score P 3 - A patient with severe systemic disease as per Marlon David MD. 8:49:53 Sedation plan: TIVA Propofol 8:49:59 Left groin area was prepped with chlora-prep and draped in sterile fashion 8:50:05 Pre procedure: left femoral pulse Doppler 8:50:12 Procedure started. 8:50:20 Local anesthetic to left femerol artery with Lidocaine 1% by Marlon David MD.INITIAL ACCESS ONLY 8:51:03 A 5 Fr sheath was inserted into the Left Femoral artery 8:51:10 Foldees DOC .035 guide wire opened to sterile field. 8:51:11 Micropuncture VSI 4FR kit opened to sterile field. 8:51:11 Terumo 5Fr Molino Sheath opened to sterile field. 8:59:21 A Merit ULTRA BOLUS FLUSH 5Fr 65CM catheter was advanced over the wire and used for . 9:10:32 Terumo 5FR ANGLED 65CM glide catheter opened to sterile field. 9:22:43 Terumo TORQUE DEVICE PLASTIC .038 opened to sterile field. 9:22:45 Terumo ANGLE 180L glide wire opened to sterile field. 9:23:33 STOPCOCK 3-WAY LARGE BORE opened to sterile field. 9:42:24 RENEGADE STAIGHT 150CM microcatheter opened to sterile field. 9:42:24 Terumo GT DOUBLE ANGLE .018 glide wire opened to sterile field. 10:01:44 Nitroglycerin IC/IA 100 I.A. was administered by ; used for procedure; 10:05:15 Emboshere particles 300-500 um opened to sterile field. 10:39:10 Cordis 5Fr Exoseal opened to sterile field. 10:44:25 Sheath removed intact; hemostasis achieved with Exoseal to the Left Femoral artery. 10:44:28 Procedure ended.(Physican Out) 10:44:47 Fluoroscopy time 19.10 minutes. 10:44:52 Fluoroscopy dose: 507 mGy 10:44:52 Flurop Dose total: 507 10:44:57 Sharps counted by scrub and verified by R.N. 10:44:59 Insertion/operative site no bleeding no hematoma. 10:45:02 Post-op/insertion site Left Femoral artery dressed using a 4 x 4 and Tegaderm. 10:45:06 Post left femerol artery:stable 10:45:17 Contrast amount:Isovue 300 200ml. 10:45:21 Post Procedure Pulses reassessed and unchanged 10:45:29 Post-procedure physical assessment completed. ASA score P 3 - A patient with severe systemic disease as per Marlon David MD. 10:45:33 Post procedure rhythm: unchanged. 10:47:40 Post procedure instruction explained to patient.Patient verbalizes understanding. 10:47:44 Procedure and supply charges have been captured, reviewed, submitted an d are correct. 10:52:52 Report given to Med/Surg. 10:52:56 Patient transfered to Outpatients with Bed. 10:53:25 Vital chart was stopped Device Usage Item Name Manufacture Quantity Catalog Number Hospital Part Current Min imal Lot# / Charge Number Stock Stock Serial# Code Sterile Cardinal 1 [id number] 180762 5 Angiographic Health Pack Acist Acist 1 81509 095731 549345 274733 5 Manifold Medical Systems Inc Bag Decanter Microtek 1 2001S 041351 37407 509977 5 Medical Inc. Acist Hand Acist 1 75253 776760 621830 546329 5 Control Medical Systems Inc Acist Syringe Acist 1 07860 544260 981151 949284 20 Medical Systems Inc Cook DOC .035 Cook Medical 1 A74405 507997 387461 5 guide wire Micropuncture VSI VASCULAR 1 7266V 146149 052578 5 VSI 4FR kit SOLUTIONS Terumo 5Fr Terumo 1 ZIT257 175133 815334 250514 40 Molino Sheath Merit ULTRA Merit 1 [id number] 210236 718553 5 BOLUS FLUSH Medical 5Fr 65CM catheter Terumo 5FR Terumo 1 CG507 421264 123733 5 ANGLED 65CM glide catheter Terumo TORQUE [place] 1 TD01 202987 549933 459937 5 DEVICE Scientific PLASTIC .038 Terumo ANGLE Terumo 1 HY5583 466382 410918 965958 5 180L glide [facility] 1 W19402 823777 6568 334189 5 [id number] 3-WAY LARGE BORE RENEGADE [place] 1 [id number] 467373 686784 5 [id number] STAIGHT 150CM Scientific microcatheter Terumo GT Terumo 1 [id number] 343244 063761 5 793194 DOUBLE ANGLE .018 glide wire [facility] 1 [id number] 838743 263160 1 [id number] particles Medical 500-700 um Cordis 5Fr Cardinal 1 EX500 015196 691767 008087 10 [id number] [facility] Signature Audit [place] Stage Time Signature Unsigned Intra-Procedure 11/20/2016 Abhishek 10:53:22 AM Dali RT (R) (CV) Signatures Monitor : Abhishek Signature : Dali RT Date : Time : [id number] [place] [address]
[~2016-11-13 15:52] MED LIST changes: +FENOGLIDE40 MG PO
[2016-11-13 16:05] VITALS: BMI 19.6
[2016-11-13 16:31] VITALS: BP 114/65
[2016-11-13 16:41] LABS: BASOPHILS 0.2 % (0-2); EOSINOPHILS 2.2 % (0-7); HEMATOCRIT 32.4 % (36.0-48.0); HEMOGLOBIN 10.7 g/dL (12-16); IMMATURE GRANULOCYTES 0.2 % (0-5); LYMPHOCYTES 11.3 % (15-50); MCH 28.8 pg (26.0-34.0); MCV 87.1 fL (80.0-100.0); MEAN PLATELET VOLUME 8.8 fL (7.4-10.4); MONOCYTES 14.8 % (2-11); NEUTROPHILS 71.3 % (40-80); PLATELET COUNT 441 10x3/uL (130-400); RBC 3.72 10x6/uL (4.00-5.40); RDW 13.5 % (11.5-14.5)
[2016-11-13 17:10] LABS: INR 1.05 (0.85-1.17); PROTIME 13.6 SECONDS (11.6-15.0)
[2016-11-13 17:11] LABS: APTT 42.1 SECONDS (22.8-39.4)
[2016-11-13 17:14] LABS: CALC OSMOLALITY 265 mosm/kg (275-300); CALCIUM 9.3 mg/dL (8.5-10.1); CARBON DIOXIDE 28.3 mmol/L (21.0-32.0); CHLORIDE - SERUM 97 mmol/L (98-107); GLUCOSE 90 mg/dL (74-106); SODIUM 134 mmol/L (136-145); UREA NITROGEN 8 mg/dL (7-18)
[2016-11-13 17:20] LABS: CREATININE - SERUM 0.5 mg/dL (0.6-1.3); eGFR NON AFRICAN AMERICAN > 90 mL/min (90-120)
[2016-11-13 20:00] VITALS: BP 131/73
--- NOTE | 2016-11-13 23:45 | NUR ---
BATHROOM EMERGENCY LIGHT GOING OFF, WENT IN ROOM TO ANSWER LIGHT. PATIENT STATED SHE DOES NOT THINK SHE CAN GET BACK TO BED BY HERSELF. ASSISTED PATIENT BACK TO BED. SHE IS VERY UNSTEADY. SHE REQUESTED A WALKER, AND A PAD FOR HER BED. GOT PATIENT A PAD FOR HER BED AND A WALKER. EXPLAINED TO PATIENT NOT TO GET UP BY HERSELF. SHE VERBALIZED UNDERSTANDING. PUT NON-SKID SOCKS ON PATIENT'S FEET. ASKED THE CIGARETTE MACHINES MECHANIC IF SHE WILL PUT A AHSAN MAT ALARM ON HER BED. PATIENT REQUESTED A PAIN PILL, GAVE PATIENT A PERCOCET PER PRN ORDER. PATIENT DENIES FURTHER NEEDS. BED IN LOWEST POSITIONS, CALL LIGHT IN REACH, BED RAILS UP X'S 2.
[2016-11-14] VITALS (10 sets, daily range): BP systolic 110–140; BP diastolic 61–75; Ht 170.2 cm; Wt 56.7 kg
--- NOTE | 2016-11-14 02:00 | NUR ---
PT IN BED WITH NO DISTRESS. RESPIRATIONS ARE EVEN AND UNLABORED. SIDE RAILS X 2. BED IS LOW. CALL LIGHT IN REACH.
[2016-11-14 04:54] LABS: BASOPHILS 0.3 % (0-2); EOSINOPHILS 1.1 % (0-7); HEMATOCRIT 33.6 % (36.0-48.0); HEMOGLOBIN 11.1 g/dL (12-16); IMMATURE GRANULOCYTES 0.3 % (0-5); LYMPHOCYTES 9.7 % (15-50); MCH 28.9 pg (26.0-34.0); MCV 87.5 fL (80.0-100.0); MEAN PLATELET VOLUME 9.4 fL (7.4-10.4); MONOCYTES 12.2 % (2-11); NEUTROPHILS 76.4 % (40-80); PLATELET COUNT 503 10x3/uL (130-400); RBC 3.84 10x6/uL (4.00-5.40); RDW 13.7 % (11.5-14.5); WBC 11.6 10x3/uL (4.8-10.8)
[2016-11-14 05:06] LABS: CALC OSMOLALITY 272 mosm/kg (275-300); CALCIUM 9.9 mg/dL (8.5-10.1); CARBON DIOXIDE 27.8 mmol/L (21.0-32.0); CHLORIDE - SERUM 101 mmol/L (98-107); GLUCOSE 121 mg/dL (74-106); POTASSIUM - SERUM 4.3 mmol/L (3.5-5.1); SODIUM 137 mmol/L (136-145); UREA NITROGEN 7 mg/dL (7-18); eGFR NON AFRICAN AMERICAN 86 mL/min (90-120)
[2016-11-14 05:08] LABS: CREATININE - SERUM 0.7 mg/dL (0.6-1.3)
--- NOTE | 2016-11-14 07:40 | NUR ---
SPOKE WITH DR CAR AT THIS REGARDING NEED FOR PRE OP ORDERS.
--- NOTE | 2016-11-14 07:45 | NUR ---
ATTEMPTED TO CALL PT'S , VIKRAM WRIGHT, AT NUMBER PROVIDED ON CHART. NO ANSWER, BUT LEFT VOICEMAIL FOR HIM TO RETURN MY PHONE CALL.
--- NOTE | 2016-11-14 08:00 | NUR ---
SCHEDULED PO MEDICATIONS HELD DUE TO PT BEING NPO FOR PROCEDURE.
--- NOTE | 2016-11-14 09:20 | NUR ---
PT NOT IN ROOM. CALLED MRI AND NUCLEAR MED AND WAS TOLD PT WAS IN SPECIALS. NO PRE-OPERATIVE MEDICATIONS GIVEN DUE TO NOT BEING NOTIFIED TO PRE-OP OR THAT PT WAS TAKEN TO SPECIALS FOR PROCEDURE.
--- NOTE | 2016-11-14 09:45 | NUR ---
BACK TO ROOM AT THIS TIME. VITAL SIGNS STABLE WITH RESPIRATIONS EVEN AND NON LABORED. VITAL SIGNS STABLE. PRESSURE DRESSING TO RIGHT LUNG C/D/I.
--- NOTE | 2016-11-14 10:28 | NUR ---
TAKEN TO BONE SCAN VIA BED AT THIS TIME.
--- NOTE | 2016-11-14 11:05 | NUR ---
BACK TO ROOM FROM BONE SCAN. DENIES NEEDS. CALL LIGHT IN REACH AND AHSAN MAT ALARM ON.
--- NOTE | 2016-11-14 11:43 | NUR ---
Patient Name: DEBBY WRIGHT Admission Status: Elective Accout number: [id number] Admission Date: 11-13-2016 : 1940 Admission Diagnosis: Attending: MEGAN RUIZ Current LOS: 1 Anticipated DC Date: 11-20-2016 Planned Disposition: Home Primary Insurance: MEDICARE A & B Discharge Planning Comments: CM MET WITH PATIENT REGARDING D/C NEEDS AND PLANS. PATIENT STATED SHE LIVES WITH HER SPOUSE (VIKRAM) AND HE WILL DRIVE HER HOME AT DISCHARGE. PATIENT STATED SHE IS USUALLY INDEPENDENT WITH HER CARE AND HAS BEEN IN REHAB HERE AT HOSPITAL AND NOW IS WORSE. PATIENT STATED SHE HAS A WALKER, SHOWER CHAIR, AND BS COMMODE AT HOME. PATIENTS PCP IS DR. WOOTEN IN [place] AND USES [facility] AT THE [facility] FOR HER PHARMACY. PATIENT IS CURRENT WITH [facility]. CM WILL CONTINUE TO FOLLOW PATIENT WITH D/C NEEDS AND PLANS. [facility] [phone] IVKRAM (SPOUSE) [phone] [facility] [phone] Residential Sales Associate: Ayla Cochran Is the patient Alert and Oriented? Yes 0 * How many steps to enter\exit or inside your home? 2 FLIGHTS 0 * PCP DR. WOOTEN IN [place] 0 * Pharmacy [facility] AT [facility] 0 * Preadmission Environment Home with Family 0 * ADLs Independent 0 * Equipment Bedside Commode Shower Chair Walker 0 * List name and contact numbers for known caregivers / representatives who currently or will assist patient after discharge: VIKRAM [phone] 0 * Community resources currently utilized None 0 * Additional services required to return to the preadmission environment? Yes 0 * Can the patient safely return to the preadmission environment? Yes 0 * Has this patient been hospitalized within the prior 30 days at any hospital? Yes 0 Grand Total: 0
--- NOTE | 2016-11-14 12:00 | NUR ---
TAKEN FOR MRI AT THIS TIME. WILL MONITOR PT WHEN SHE RETURNS TO ROOM.
--- NOTE | 2016-11-14 12:43 | NUR ---
PRN DILAUDID ADMINISTERED PER PT'S COMPLAINT OF PAIN. BACK FROM MRI AT THIS TIME. AHSAN MAT ALARM ON AND IN USE. WILL CONTINUE WITH PLAN OF CARE.
--- NOTE | 2016-11-14 16:33 | NUR ---
IV TO LEFT WRIST LEAKING AROUND INSERTION SITE. 22G IV SITED TO PT'S LEFT WRIST X2 ATTEMPTS. PRN DILAUDID ADMINISTERED AT THIS TIME. CALL LIGHT IN REACH, WILL CONTINUE WITH PLAN OF CARE.
--- NOTE | 2016-11-14 17:33 | NUR ---
PATIENT HAD CONTRAST AT 1230. DR. BAILEY RECOMMENDED TO WAIT TO RECONTRAST IN AM. SPOKE TO ANASTASIA PATEL APN WILL PERFORM MRI LUMBAR W/WO IN AM.
--- NOTE | 2016-11-14 19:00 | NUR ---
REPORT RECEIVED AND CARE OF PT ASSUMED. PT LYING IN SUPINE POSITION WITH EYES CLOSED. IV IN RIGHT WRIST SALINE LOCKED. SCD'S IN USE ON BLE. WILL MONITOR CLOSLEY FOR NEEDS. CALL LIGHT WITHIN REACH.
--- NOTE | 2016-11-14 21:09 | NUR ---
HS MEDICATIONS GIVEN TO INCLUDE DILAUDID AND ROBAXIN FOR PAIN PER PT REQUEST, PER PRN ORDER. WILL CONTINUE TO MONITOR FOR NEEDS. CALL LIGHT WITHIN REACH.
[2016-11-15] VITALS (9 sets, daily range): BP systolic 95–130; BP diastolic 57–72
--- NOTE | 2016-11-15 00:10 | NUR ---
PT RESTING QUIESTLY IN SUPINE POSITION WITH EYES CLOSED AND UNLABORED BREATHING. WILL CONTINUE TO MONITOR FOR NEEDS.
--- NOTE | 2016-11-15 01:21 | NUR ---
PT RESTING QUIETLY IN SUPINE POSITION WITH EASY RESPIRATIONS. WILL CONTINUE TO MONITOR FOR NEEDS.
--- NOTE | 2016-11-15 05:40 | NUR ---
GAVE DILAUDID 2 MG IVP PER PT REQUEST FOR PAIN IN BACK, PER PRN ORDER. ASSISTED PT UP TO BSC TO VOID. WILL CONTINUE TO MONITOR FOR NEEDS.
--- NOTE | 2016-11-15 07:10 | NUR ---
PATIENT RECEIVED IN LOW ARENAS POSITION RESTING QUIETLY. RESPIRATIONS EVEN AND UNLABORED. DENIES NEEDS. SIDE RAILS UP X2. BED IN LOW POSITION. CALL LIGHT IN REACH. AHSAN ALARM ON.
--- NOTE | 2016-11-15 08:30 | NUR ---
PATIENT ALERT IN BED. NO SIGNS OF DISTRESS NOTED. SCHEDULED MEDICATION ADMINISTERED. SCD ON BILATERALLY. DENIES NEEDS. BED IN LOW POSITION. SIDE RAILS UP X2. CALL LIGHT IN REACH.
[2016-11-15 10:26] LABS: BASOPHILS 0.2 % (0-2); EOSINOPHILS 0.9 % (0-7); HEMATOCRIT 33.3 % (36.0-48.0); HEMOGLOBIN 10.8 g/dL (12-16); IMMATURE GRANULOCYTES 0.3 % (0-5); LYMPHOCYTES 10.5 % (15-50); MCH 28.7 pg (26.0-34.0); MCHC 32.4 g/dL (31.0-37.0); MCV 88.6 fL (80.0-100.0); MEAN PLATELET VOLUME 8.8 fL (7.4-10.4); MONOCYTES 8.7 % (2-11); NEUTROPHILS 79.4 % (40-80); PLATELET COUNT 446 10x3/uL (130-400); RBC 3.76 10x6/uL (4.00-5.40); RDW 13.7 % (11.5-14.5); WBC 9.7 10x3/uL (4.8-10.8)
[2016-11-15 10:42] LABS: ALBUMIN 2.3 g/dL (3.4-5.0); ANION GAP 12.5 mmol/L (8-16); BILIRUBIN - TOTAL 0.3 mg/dL (0.2-1.3); CALCIUM 9.8 mg/dL (8.5-10.1); CARBON DIOXIDE 28.9 mmol/L (21.0-32.0); CREATININE - SERUM 0.8 mg/dL (0.6-1.3); POTASSIUM - SERUM 4.4 mmol/L (3.5-5.1); PROTEIN - SERUM 6.4 g/dL (6.4-8.2)
--- NOTE | 2016-11-15 12:22 | NUR ---
PATIENT OFF FLOOR TO SURGERY VIA BED.
--- NOTE | 2016-11-15 12:55 | NUR ---
NUTRITION F/U PT VISIT. REPORTS POOR APPETITE, MINIMAL PO INTAKE. AGREEABLE TO LAURA ENSURE WITH MEALS. PT MAY ALSO BENEFIT FROM APPETITE STIMULANT. RD FOLLOWING
--- NOTE | 2016-11-15 14:20 | NUR ---
PATIENT BACK TO ROOM FROM PACU. PATIENT A/O X4. VITAL SIGNS STABLE. RATES PAIN 2/10. DENIES NEEDS. SIDE RAILS UP X2. BED IN LOW POSITION. CALL LIGHT IN REACH. AHSAN ALARM ON.
--- NOTE | 2016-11-15 16:22 | NUR ---
ALERT IN BED. C/O PAIN 10/24. 2MG DILAUDID IVP ADMINISTERED SLOW IVP PER PRN ORDER. DENIES NEEDS. SIDE RAILS UP X2. BED IN LOW POSITION. CALL LIGHT IN REACH.
--- NOTE | 2016-11-15 17:10 | NUR ---
ALERT IN BED TALKING ON PHONE. NO SIGNS OF DISTRESS NOTED. SIDE RAILS UP X2. BED IN LOW POSITION. CALL LIGHT IN REACH. AHSAN ALARM ON.
--- NOTE | 2016-11-15 19:00 | NUR ---
REPORT RECEIVED AND CARE OF PT ASSUMED. PT LYING IN SUPINE POSITION WITH EYES CLOSED AND EASY RESPIRATIONS. IV IN RIGHT WRIST SALINE LOCKED. WILL MONITOR CLOSELY FOR NEEDS.
--- NOTE | 2016-11-15 21:16 | NUR ---
HS MEDICATIONS GIVEN TO INCLUDE DILAUDID 2 MG IVP PER PRN ORDER, FOR PAIN AT LEVEL 8/10. WILL CONTINUE TO MONITOR FOR NEEDS. CALL LIGHT WITHIN REACH.
[2016-11-16] VITALS: BP 143/59
--- NOTE | 2016-11-16 00:43 | NUR ---
GAVE PERCOCET 10 PO PER PT REQUEST FOR PAIN, PER PRN ORDER. WILL CONTINUE TO MONITOR FOR NEEDS. CALL LIGHT WITHIN REACH.
[2016-11-16 04:09] VITALS: BP 116/63
--- NOTE | 2016-11-16 06:29 | NUR ---
PT RESTED WELL OVERNIGHT. ASSISTED UP TO BSC AT 0600 AND PT SEEMS TO BE GETTING WEAKER AND MORE UNSTEADY. GAVE DILAUDID 2 MG IVP PER REQUEST FOR SEVERE PAIN. WILL CONTINUE TO MONITOR. CONTINUE PLAN OF CARE.
--- NOTE | 2016-11-16 07:25 | NUR ---
PATIENT RECEIVED ALERT IN LOW ARENAS POSITION RESTING QUIETLY. RESPIRATIONS EVEN AND UNLABORED. SIDE RAILS UP X2. BED IN LOW POSITION. CALL LIGHT IN REACH. AHSAN ALARM ON.
[2016-11-16 08:10] VITALS: BP 105/58
--- NOTE | 2016-11-16 09:15 | NUR ---
PATIENT ALERT IN BED WITH AT BEDSIDE. NO SIGNS OF DISTRESS NOTED. SCHEDULED MEDICATION ADMINISTERED WELL PRN PERCOCET FOR PAIN 09/23. SIDE RAILS UP X2. BED IN LOW POSITION. CALL LIGHT IN REACH.
--- NOTE | 2016-11-16 11:15 | NUR ---
PATIENT IN LOW ARENAS POSITION RESTING QUIETLY WITH EYES CLOSED. RESPIRATIONS EVEN AND UNLABORED. SIDE RAILS UP X2. BED IN LOW POSITION. CALL LIGHT IN REACH.
--- NOTE | 2016-11-16 12:23 | NUR ---
ALERT IN BED. RATES PAIN 8/10. 2MG DILAUDID ADMINISTERED SLOW IVP TO LEFT INFUSAPORT. FLUSHES EASY WITH BRISK BLOOD RETURN. DENIES FURTHER NEEDS. SIDE RAILS UP X2. BED IN LOW POSITION. CALL LIGHT IN REACH.
[2016-11-16 12:40] VITALS: BP 123/75
--- NOTE | 2016-11-16 14:15 | NUR ---
PATIENT ALERT IN BED. SALINE ROB TO RIGHT WRIST D/C WITH CATH TIP INTACT. SITE COVERED WITH GAUZE AND BANDAID. WELL TOLERATED.
[2016-11-16 15:57] VITALS: BP 106/65
--- NOTE | 2016-11-16 17:04 | NUR ---
PATIENT REPOSITIONED IN BED. DINNER TRAY SET UP. PERCOCET ADMINISTERED PER PRN ORDER FOR PAIN. DENIES FURTHER NEEDS. SIDE RAILS UP X2. BED IN LOW POSITION. CALL LIGHT IN REACH.
--- NOTE | 2016-11-16 19:00 | NUR ---
BEDSIDE REPORT RECEIVED AND CARE OF PT ASSUMED. PT LYING IN SEMI ARENAS'S POSITION WITH EYES CLOSED. LEFT IP ACCESSED AND SALINE LOCKED. WILL MONITOR CLOSELY FOR NEEDS.
[2016-11-16 20:00] VITALS: BP 122/69
--- NOTE | 2016-11-16 20:07 | NUR ---
HS MEDICATIONS GIVEN TO INCLUDE DILAUDID 2 MG IVP PER REQUEST, PER PRN ORDER. WILL CONTINUE TO MONITOR CLOSELY FOR NEEDS.
--- NOTE | 2016-11-16 21:35 | NUR ---
PT RESTING QUIETLY IN LOW ARENAS'S POSITION WITH EYES CLOSED. WILL CONTINUE TO MONITOR FOR NEEDS.
[2016-11-17] VITALS: BP 120/51
--- NOTE | 2016-11-17 01:48 | NUR ---
PT WAS ASSISTED UP TO BSC BY SUPERVISOR PIT AND AUXILIARIES...WHILE SITTING ON BSC SHE BEGAIN SCREAMING FOR HELP. ANOTHER NURSE CAME IN AND THE TWO OF THEM ASSISTED PT BACK INTO BED. PT CONTINUES TO SCREAM FOR HELP. GAVE DILAUDID 2 MG IVP PER PRN ORDER. PT YELLING OUT THAT SHE WANTS TO KILL HERSELF. WE WILL NOT BE GETTING PT UP TO BSC AGAIN...BEDPAN ONLY FOR NOW.
--- NOTE | 2016-11-17 02:01 | NUR ---
PT SCREAMING OUT AND SAYING THAT SHE WANTS TO KILL HERSELF. GAVE MUSCLE RELAXER TO TRY TO FURTHER EASE PAIN. SIDE RAILS UP X3 AND BED ALARM IN USE FOR SAFETY.
--- NOTE | 2016-11-17 02:09 | NUR ---
PT HAVING DIFFICULTY SWALLOWING...EVEN SIPS OF WATER, PT STARTS COUGHING UNLESS SHE IS SITTING UP AT 90 DEGREES...AND THAT POSITION CAUSES HER PAIN.
--- NOTE | 2016-11-17 02:16 | NUR ---
CALLED ER TO SPEAK TO MD ABOUT MEDICATION TO CALM PT DOWN....MD NOT AVAILABLE AT THIS TIME.
[2016-11-17 04:00] VITALS: BP 149/66
--- NOTE | 2016-11-17 06:10 | NUR ---
PT OFFERED A BATH AND BED CHANGE THIS MORNING...PT DECLINED.
--- NOTE | 2016-11-17 07:05 | NUR ---
PATIENT RECEIVED IN MID ARENAS POSITION. RESPIRATIONS EVEN AND UNLABORED. DENIES NEEDS. SIDE RAILS UP X2. BED IN LOW POSITION. CALL LIGHT IN REACH. AHSAN ALARM ON.
--- NOTE | 2016-11-17 07:45 | NUR ---
PATIENT ALERT IN BED YELLING OUT IN PAIN. RATES PAIN 9/10. LEFT CHEST INFUSAPORT PATENT. FLUSHES EASY WITH BRISK BLOOD RETURN PRESENT. 2MG DILAUDID ADMINISTERED PER PRN ORDER. DENIES FURTHER NEEDS. AT BEDSIDE. SIDE RAILS UP X2. BED IN LOW POSITION. CALL LIGHT IN REACH.
[2016-11-17 08:20] VITALS: BP 138/65
--- NOTE | 2016-11-17 09:15 | NUR ---
ALERT IN BED WITH PRESENT. RATES PAIN 8/10 AFTER RECEIVING PAIN MEDICATION. NO NEEDS VOICED. SIDE RAILS UP X3. BED IN LOW POSITION. CALL LIGHT IN REACH. AHSAN ALARM ON.
--- NOTE | 2016-11-17 12:20 | NUR ---
ALERT IN BED WATCHING TV. RATES PAIN 5/10. DENIES NEEDS. SIDE RAILS UP X2. BED IN LOW POSITION. CALL LIGHT IN REACH.
[2016-11-17 12:43] VITALS: BP 132/74
--- NOTE | 2016-11-17 14:05 | NUR ---
ALERT IN BED WITH GUEST PRESENT. NO SIGNS OF DISTRESS NOTED. RATES PAIN /. OFFERED PAIN MEDICATION AND REFUSES AT THIS TIME. DENIES NEEDS. SIDE RAILS UP X2. BED IN LOW POSITION. CALL LIGHT IN REACH.
[2016-11-17 15:44] VITALS: BP 137/85
--- NOTE | 2016-11-17 17:42 | NUR ---
DILAUDID ADMINISTERED PER PRN ORDER FOR PAIN 12/24. DENIES FURTHER NEEDS. SIDE RAILS UP X2. BED IN LOW POSITION. CALL LIGHT IN REACH.
--- NOTE | 2016-11-17 19:00 | NUR ---
VINITA REPORT RECEIVED AND CARE OF PT ASSUMED. PT LYING IN SUPINE POSITION WITY EYES CLOSED. LEFT IP SALINE LOCKED, WITH CLEAN AND DRY DRESSING. WILL MONITOR CLOSELY FOR NEEDS. CALL LIGHT WITHIN REACH.
[2016-11-17 20:00] VITALS: BP 104/69
--- NOTE | 2016-11-17 21:02 | NUR ---
HS MEDICATIONS GIVEN TO INCLUDE MUSCLE RELAXER PO AND DILAUDID 2 MG IVP PER PRN ORDERS, PER REQUEST FOR PAIN. WILL CONTINUE TO MONITOR CLOSELY FOR NEEDS.
[2016-11-18] VITALS (7 sets, daily range): BP systolic 107–129; BP diastolic 62–69
--- NOTE | 2016-11-18 03:24 | NUR ---
PT RESTING QUIETLY AT THIS TIME. DENIES NEED FOR PAIN MED. CALL LIGHT WITHIN REACH.
[2016-11-18 05:37] LABS: BASOPHILS 0.1 % (0-2); EOSINOPHILS 0.7 % (0-7); HEMOGLOBIN 10.8 g/dL (12-16); IMMATURE GRANULOCYTES 0.2 % (0-5); LYMPHOCYTES 7.9 % (15-50); MCH 28.4 pg (26.0-34.0); MCHC 32.7 g/dL (31.0-37.0); MCV 86.8 fL (80.0-100.0); MEAN PLATELET VOLUME 9.2 fL (7.4-10.4); NEUTROPHILS 81.1 % (40-80); PLATELET COUNT 523 10x3/uL (130-400); RDW 13.7 % (11.5-14.5); WBC 12.1 10x3/uL (4.8-10.8)
[2016-11-18 06:09] LABS: ALBUMIN 2.1 g/dL (3.4-5.0); ALKALINE PHOSPHATASE 85 U/L (46-116); ALT (SGPT) 9 U/L (10-68); CALC OSMOLALITY 276 mosm/kg (275-300); CARBON DIOXIDE 26.1 mmol/L (21.0-32.0); CHLORIDE - SERUM 101 mmol/L (98-107); CREATININE - SERUM 0.6 mg/dL (0.6-1.3); GLUCOSE 128 mg/dL (74-106); POTASSIUM - SERUM 3.7 mmol/L (3.5-5.1); PROTEIN - SERUM 6.4 g/dL (6.4-8.2); SODIUM 138 mmol/L (136-145); UREA NITROGEN 10 mg/dL (7-18); eGFR NON AFRICAN AMERICAN > 90 mL/min (90-120)
--- NOTE | 2016-11-18 07:58 | NUR ---
PT AOX4 RESP EVEN AND NONLABORED PT DENIES NEEDS AT THIS TIME IV TO LEFT INFUSIPORT PATENT AND INTACT AT THIS TIME SRX2 BED AT LOWEST SETTING CALL LIGHT WITHIN REACH WILL CONTINUE TO MONITOR
--- NOTE | 2016-11-18 12:42 | NUR ---
WAS CALLED OVER BY THE FLY RAIL OPERATOR TO TALK TO THE PATIENT POA. UPON ENTRY INTO THE ROOM, I WAS GREETED BY A MRS. KALPANA GAONA. SHE INTRODUCED HERSELF TO ME THE PATIENTS POA AND HER CUT PRESS OPERATOR. SHE WANTED PAPERWORK PRINTED ON THE PATIENT SO THAT SHE COULD GET HER CLAIM FILED, "WHILE SHE IS STILL WITH IT ENOUGHT TO FILE IT". EXPLAINED THAT SHE WOULD HAVE TO GO TO [facility] TOMORROW AND FILL OUT SOME PAPERWORK SO THAT SHE COULD OBTAIN THE RECORDS. SHE QUESTIONED WHY I COULD NOT JUST MAKE HER COPIES, STATING WE HAVE A COPY OF THE POA. EXPLAINED THAT WE HAVE POLICIES THAT HAVE TO BE FOLLOWED SO THAT THE PATIENTS RIGHTS ARE OBSERVED. THE PATIENT LAID IN BED, DID NOT MAKE A SINGLE PEEP OR NOISE. SHE AGAIN QUESTIONED TO WHY I COULD NOT JUST PRINT HER OFF THE DOCTOR NOTES NOW. EXPLAINED THAT SHE NEEDED TO GO THROUGH [facility] AND SIGN THE CORRECT PAPERWORK SO THAT THE CORRECT PAPERTRAIL IS MAINTAINED TO SHOW THAT WE ARE COMPLIANT WITH HIPPA AND THAT THE PATIENTS RIGHTS WERE MAINTAINED. SHE THEN SAID, WILL YOU JUST FAX THE POA PAPERS DOWN TO THEM AND ASK THEM TO FAX ME THE INFORMATION TO MY OFFICE TOMORROW SO THAT I DON'T HAVE TO COME BACK DOWN HERE. I AGAIN EXPLAINED THAT THAT WOULD NOT BE A POSSIBILITY. THAT SHE WOULD NEED TO BE HERE IN PERSON TO SHOW HER ID AND SIGN THE FORM IN [facility]. SHE THEN STATED, "I GUESS I AM JUST GOING TO HAVE TO WAIT UNTIL TOMORROW, AND IT WILL JUST DELAY HER CLAIM BEING FILED." AT THIS TIME THE PATIENT GAVE A BIG SMILE, AND I SAID "YES MA'AM, THAT IS WHAT IS GOING TO HAVE TO HAPPEN. I AM SORRY, BUT YOU SHOULD UNDERSTAND PROTECTING YOUR PATIENT RIGHTS." SHE THEN THANKED ME FOR MY TIME AND TURNED HER BACK TO ME AND STARTED TALKING TO THE PATIENT. THIS CONVERSATION WAS EXPLAINED TO THE PATIENTS NURSE REYNALDO ACKERMAN.
--- NOTE | 2016-11-18 20:21 | NUR ---
REC'D. IN BED. EYES CLOSED RESP. DEEP AND EVEN.WILL CONTINUE TO MONITOR AND CONTINUE CURRENT PLAN OF CARE
[2016-11-19] VITALS: BP 107/81
--- NOTE | 2016-11-19 02:00 | NUR ---
PT IN BED WITH NO DISTRESS. RESPIRATIONS EVEN AND UNLABORED. SIDE RAILS X 2. BED IS LOW. CALL LIGHT IN REACH.
[2016-11-19 04:00] VITALS: BP 125/81
--- NOTE | 2016-11-19 07:59 | NUR ---
PT AOX4 RESP EVEN AND NONLABORED PT DENIES NEEDS AT THIS TIME IV TO LEFT INFUSIPORT PATENT AT THIS TIME SRX2 BED AT LOWEST SETTING CALL LIGHT WITHIN REACH WILL CONTINUE TO MONITOR
[2016-11-19 08:18] VITALS: BP 113/69
[2016-11-19 10:12] LABS: ALKALINE PHOSPHATASE 82 U/L (46-116); ALT (SGPT) 9 U/L (10-68); BILIRUBIN - TOTAL 0.42 mg/dL (0.2-1.3); CALC OSMOLALITY 274 mosm/kg (275-300); CALCIUM 7.9 mg/dL (8.5-10.1); CARBON DIOXIDE 26.2 mmol/L (21.0-32.0); CHLORIDE - SERUM 101 mmol/L (98-107); CREATININE - SERUM 0.5 mg/dL (0.6-1.3); GLUCOSE 121 mg/dL (74-106); POTASSIUM - SERUM 3.8 mmol/L (3.5-5.1); PROTEIN - SERUM 6.5 g/dL (6.4-8.2); SODIUM 137 mmol/L (136-145); UREA NITROGEN 12 mg/dL (7-18); eGFR NON AFRICAN AMERICAN > 90 mL/min (90-120)
[2016-11-19 10:25] LABS: BASOPHILS 0.1 % (0-2); EOSINOPHILS 0.4 % (0-7); HEMATOCRIT 33.3 % (36.0-48.0); IMMATURE GRANULOCYTES 0.3 % (0-5); LYMPHOCYTES 6.5 % (15-50); MCH 28.9 pg (26.0-34.0); MCV 87.6 fL (80.0-100.0); MEAN PLATELET VOLUME 9.4 fL (7.4-10.4); NEUTROPHILS 82.7 % (40-80); PLATELET COUNT 549 10x3/uL (130-400); RDW 13.9 % (11.5-14.5)
[2016-11-19 12:44] VITALS: BP 116/73
--- NOTE | 2016-11-19 13:27 | NUR ---
NUTRITION F/U CHART REVIEWED, PT PO INTAKE REG DIET REMAINS POOR. PT STATES SHE DOESN'T FEEL LIKE EATING. WILL CONTINUE TO PROVIDE DIET, ENSURE. MONITOR INTAKE. RD FOLLOWING
[2016-11-19 16:28] VITALS: BP 131/70
[2016-11-19 20:00] VITALS: BP 125/71
[2016-11-20] VITALS: BP 142/88
--- NOTE | 2016-11-20 02:40 | NUR ---
REC'D.IN BED STATES PAIN BETTER [facility] STARTED PUSH BUTTON FOR PAIN.WILL CONTINUE TO MONITOR FOR ANY CHGES. AND FOLLOW CURRENT PLAN OF CARE
--- NOTE | 2016-11-20 05:00 | NUR ---
EYES CLOSED RESPIRATIONS WITH EASE AND UNLABORED. SR UP X2 CALL LIGHT WITHIN REACH.
[2016-11-20 05:53] LABS: BASOPHILS 0.1 % (0-2); EOSINOPHILS 0.4 % (0-7); HEMOGLOBIN 10.5 g/dL (12-16); IMMATURE GRANULOCYTES 0.4 % (0-5); LYMPHOCYTES 5.5 % (15-50); MCH 28.8 pg (26.0-34.0); MCHC 32.8 g/dL (31.0-37.0); MCV 87.9 fL (80.0-100.0); MEAN PLATELET VOLUME 9.5 fL (7.4-10.4); MONOCYTES 9.7 % (2-11); NEUTROPHILS 83.9 % (40-80); PLATELET COUNT 538 10x3/uL (130-400); RBC 3.64 10x6/uL (4.00-5.40); RDW 13.8 % (11.5-14.5); WBC 13.8 10x3/uL (4.8-10.8)
[2016-11-20 06:05] LABS: INR 1.02 (0.85-1.17); PROTIME 13.2 SECONDS (11.6-15.0)
[2016-11-20 06:42] LABS: ALKALINE PHOSPHATASE 81 U/L (46-116); ALT (SGPT) 10 U/L (10-68); BILIRUBIN - TOTAL 0.49 mg/dL (0.2-1.3); CALC OSMOLALITY 274 mosm/kg (275-300); CALCIUM 7.8 mg/dL (8.5-10.1); CARBON DIOXIDE 22.5 mmol/L (21.0-32.0); CHLORIDE - SERUM 100 mmol/L (98-107); CREATININE - SERUM 0.6 mg/dL (0.6-1.3); GLUCOSE 124 mg/dL (74-106); POTASSIUM - SERUM 3.5 mmol/L (3.5-5.1); PROTEIN - SERUM 6.4 g/dL (6.4-8.2); SODIUM 137 mmol/L (136-145); UREA NITROGEN 13 mg/dL (7-18); eGFR NON AFRICAN AMERICAN > 90 mL/min (90-120)
--- NOTE | 2016-11-20 07:40 | NUR ---
2ND VOICEMAIL MESSAGE LEFT FOR KALPANA HI) FOR PHONE CONSENT FOR EMBOLIZATION PROCEDURE RIGHT FEMUR.WITH NO RESPONSE AT PRESENT TIME.WITH NO RESPONSE FROM WELL.
--- NOTE | 2016-11-20 08:00 | NUR ---
ALERT, DENIES NEEDS, COLEEN RN CHANGED DRESSING AND NEEDLE IN PORT, 19G 1IN PLACED, MINIMAL DISCOMFORT, CALL LIGHT IN REACH, BED LOWEST POSITION, WILL CONTINUE TO MONITOR
[2016-11-20 08:19] VITALS: BP 130/70
--- NOTE | 2016-11-20 11:00 | NUR ---
PT HERE FOR METASTATIC CANCER FOR THIS VISIT. IV TO FA PATENT AND INTACT AT THIS TIME PT DENIES NEEDS AT THIS TIME SRX2 BED AT LOWEST SETTING CALL LIGHT WITHIN REACH WILL CONTINUE TO MONITOR
[2016-11-20 16:17] VITALS: BP 122/62
[2016-11-20 20:00] VITALS: BP 150/73
--- NOTE | 2016-11-20 22:47 | NUR ---
REC'D PATIENT LYING IN BED. ALERT AND ORIENTED X2. IS SLIGHTLY CONFUSED AND WANTING TO GET OUT OF THE BED. ALARM IS ON. DENIED FURTHER NEEDS AT THIS TIME. WILL CONT TO MONITOR THROUGHOUT NIGHT. INSTRUCTED TO CALL IF NEEDED ANYTHING, VERBALIZED UNDEDRSTANDING. BED LOW, LOCKED, CALL LIGHT IN REACH.
--- NOTE | 2016-11-20 23:00 | NUR ---
PATIENT IS AWAKE, LOOKING AROUND. SPOKE TO PATIENT, SHE MADE EYE CONTACT WITH ME AND STARTED TALKING. SHE IS CONFUSED. SHE SAID SHE IS [facility]. TOLD HER SHE IS IN THE HOSPITAL, HER FACE APPEARED VERY SUPRISED. SHE DENIES NEEDS. AHSAN ALARM IS ON. THERE IS NO SIGNS OF DISTRESS, NO FACIAL GRIMMACING, RESPIRATIONS ARE EVEN AND UNLABORED ON ROOM AIR. BED IN LOWEST POSITION, CALL LIGHT IN REACH. BED RAILS UP X'S 2.
[2016-11-21 05:05] LABS: BASOPHILS 0.1 % (0-2); EOSINOPHILS 0.4 % (0-7); HEMATOCRIT 27.1 % (36.0-48.0); HEMOGLOBIN 9.1 g/dL (12-16); IMMATURE GRANULOCYTES 0.2 % (0-5); LYMPHOCYTES 4.7 % (15-50); MCH 28.9 pg (26.0-34.0); MCHC 33.6 g/dL (31.0-37.0); MEAN PLATELET VOLUME 9.3 fL (7.4-10.4); MONOCYTES 10.2 % (2-11); NEUTROPHILS 84.4 % (40-80); PLATELET COUNT 463 10x3/uL (130-400); RBC 3.15 10x6/uL (4.00-5.40); RDW 13.8 % (11.5-14.5)
[2016-11-21 05:28] LABS: ALKALINE PHOSPHATASE 78 U/L (46-116); CALC OSMOLALITY 271 mosm/kg (275-300); CALCIUM 7.6 mg/dL (8.5-10.1); CARBON DIOXIDE 21.5 mmol/L (21.0-32.0); CHLORIDE - SERUM 101 mmol/L (98-107); CREATININE - SERUM 0.5 mg/dL (0.6-1.3); GLUCOSE 112 mg/dL (74-106); POTASSIUM - SERUM 3.8 mmol/L (3.5-5.1); PROTEIN - SERUM 5.4 g/dL (6.4-8.2); SODIUM 136 mmol/L (136-145); UREA NITROGEN 10 mg/dL (7-18); eGFR NON AFRICAN AMERICAN > 90 mL/min (90-120)
[2016-11-21 05:30] LABS: ALT (SGPT) 13 U/L (10-68)
--- NOTE | 2016-11-21 07:30 | NUR ---
RECIEVED PT DURING WALKING ROUNDS, PT RESTING IN BED WITH COMPLAINTS OF PAIN OF A 8 ON A SCALE OF 1-10. BRAKE PRESS OPERATOR IN USE, INSTRUCTED PT ON USE OF BRAKE PRESS OPERATOR PUMP. ASSESSMENT DONE PER FLOWSHEET. BED IN LOW POSITION AND CALL LIGHT WITHIN REACH. WILL CONTINUE TO MONITOR.
[2016-11-21 09:39] VITALS: BP 133/71
--- NOTE | 2016-11-21 11:27 | NUR ---
ANESTHESIA PLACED SPINAL UPON ARRIVAL TO ROOM
[2016-11-21 12:40] VITALS: BP 132/81
--- NOTE | 2016-11-21 12:40 | NUR ---
PT RETURNED FROM SURGERY AT THIS TIME, POST-OP VITALS STARTED. BED IN LOW POSITION AND CALL LIGHT WITHIN REACH. FAMILY AT BEDSIDE.
--- NOTE | 2016-11-21 15:40 | NUR ---
PT PULLED OUT NINA CATH AT THIS TIME WITH BALLOON INFLATED, WAS FOUND BY COLEEN POON RN. WILL CONTINUE TO MONITOR FOR ANY POTENTIAL COMPLICATIONS.
[2016-11-21 20:00] VITALS: BP 122/62
[2016-11-22] VITALS: BP 116/64
[2016-11-22 04:00] VITALS: BP 120/57
[2016-11-22 07:00] LABS: BASOPHILS 0 % (0-2); EOSINOPHILS 0.5 % (0-7); HEMATOCRIT 24.2 % (36.0-48.0); HEMOGLOBIN 8.1 g/dL (12-16); IMMATURE GRANULOCYTES 0.3 % (0-5); MCH 28.7 pg (26.0-34.0); MCHC 33.5 g/dL (31.0-37.0); MCV 85.8 fL (80.0-100.0); MONOCYTES 12.5 % (2-11); NEUTROPHILS 80.7 % (40-80); PLATELET COUNT 411 10x3/uL (130-400); RBC 2.82 10x6/uL (4.00-5.40); RDW 13.6 % (11.5-14.5)
[2016-11-22 07:03] LABS: ALBUMIN 1.7 g/dL (3.4-5.0); ALKALINE PHOSPHATASE 78 U/L (46-116); ALT (SGPT) 12 U/L (10-68); BILIRUBIN - TOTAL 0.45 mg/dL (0.2-1.3); CALC OSMOLALITY 272 mosm/kg (275-300); CALCIUM 7.1 mg/dL (8.5-10.1); CARBON DIOXIDE 22.1 mmol/L (21.0-32.0); CHLORIDE - SERUM 102 mmol/L (98-107); CREATININE - SERUM 0.4 mg/dL (0.6-1.3); GLUCOSE 110 mg/dL (74-106); POTASSIUM - SERUM 3.2 mmol/L (3.5-5.1); PROTEIN - SERUM 5.5 g/dL (6.4-8.2); SODIUM 137 mmol/L (136-145); UREA NITROGEN 7 mg/dL (7-18); eGFR NON AFRICAN AMERICAN > 90 mL/min (90-120)
[2016-11-22 07:16] LABS: WBC 10.1 10x3/uL (4.8-10.8)
--- NOTE | 2016-11-22 07:30 | NUR ---
SLEEPING, AT BEDSIDE, NO DISTRESS NOTED, BREATHING EVEN UNLABORED, BED LOWEST POSITION, CALL LIGHT IN REACH, WILL CONTINUE TO MONITOR
--- NOTE | 2016-11-22 07:40 | NUR ---
PT ASLEEP WITH NO VISABLE SIGNS OF PAIN OR DISCOMFORT AT THIS TIME. BED IN LOW POSITION AND CALL LIGHT WITHIN REACH. WILL CONTINUE TO MONITOR.
[2016-11-22 08:08] VITALS: BP 122/56
--- NOTE | 2016-11-22 11:21 | NUR ---
SLEEPING, BREATHING EVEN UNLABORED, NO DISTRESS NOTED, WILL CONTINUE TO MONITOR
[2016-11-22 12:40] VITALS: BP 125/56
--- NOTE | 2016-11-22 14:42 | NUR ---
Nutrition follow-up: Pt continues to have very poor po intake due to increased pain. Labs reviewed May need to consider starting nutrition support to supplement po intake until pain under better control. RDN following.
[2016-11-22 16:00] VITALS: BP 114/67
[2016-11-22 20:00] VITALS: BP 138/63
[2016-11-23] VITALS (22 sets, daily range): BP systolic 105–141; BP diastolic 52–91
--- NOTE | 2016-11-23 01:24 | NUR ---
ASSESSED AT THE BEGINNING OF THE SHIFT. PT IS LETHARGIC AND SLEEPS MOST OF THE TIME BUT YOU CAN WAKE HER UP FOR MEDS AND THEN SHE WILL ASK TO USE THE BEDPAN. SHE IS POST OP DAY 1 FOR AN ORIF OF THE RIGHT HIP. DRESSING IS CLEAN DRY AND INTACT. SHE IS USING HER TICKET COLLECTOR FOR PAIN CONTROL WHEN SHE WAKES UP. THE BED IS LOW, RAILS UP X'S 2 WITH THE CALL LIGHT AT HAND.
[2016-11-23 07:07] LABS: BASOPHILS 0.1 % (0-2); EOSINOPHILS 1.1 % (0-7); HEMATOCRIT 24.7 % (36.0-48.0); HEMOGLOBIN 8.2 g/dL (12-16); IMMATURE GRANULOCYTES 0.4 % (0-5); LYMPHOCYTES 6.8 % (15-50); MCH 28.5 pg (26.0-34.0); MCHC 33.2 g/dL (31.0-37.0); MCV 85.8 fL (80.0-100.0); MEAN PLATELET VOLUME 9.1 fL (7.4-10.4); MONOCYTES 11.6 % (2-11); PLATELET COUNT 470 10x3/uL (130-400); RBC 2.88 10x6/uL (4.00-5.40); RDW 13.8 % (11.5-14.5); WBC 10.2 10x3/uL (4.8-10.8)
[2016-11-23 07:20] LABS: ALBUMIN 1.5 g/dL (3.4-5.0); ALKALINE PHOSPHATASE 70 U/L (46-116); ALT (SGPT) 11 U/L (10-68); BILIRUBIN - TOTAL 0.41 mg/dL (0.2-1.3); CALC OSMOLALITY 266 mosm/kg (275-300); CALCIUM 7.2 mg/dL (8.5-10.1); CARBON DIOXIDE 21.3 mmol/L (21.0-32.0); CHLORIDE - SERUM 101 mmol/L (98-107); CREATININE - SERUM 0.4 mg/dL (0.6-1.3); GLUCOSE 95 mg/dL (74-106); POTASSIUM - SERUM 3.1 mmol/L (3.5-5.1); PROTEIN - SERUM 5.4 g/dL (6.4-8.2); SODIUM 135 mmol/L (136-145); UREA NITROGEN 5 mg/dL (7-18); eGFR NON AFRICAN AMERICAN > 90 mL/min (90-120)
--- NOTE | 2016-11-23 08:00 | NUR ---
AWAKE AND ALERT. ORIENTED X3. NO C/O THIS AM. LUNGS ARE CLEAR BILATERALLY, NO COUGH NOTED. SKIN IS INTACT WITHOUT REDNESS EXCEPT INCISION TO RIGHT HIP WHICH HAS A DRY INTACT DRESSING IN PLACE. LEFT PORT IS PATNET WITHOUT REDNESS AT INSERTION SITE. ASSISTED WITH BED LIVING[place]ON PER STAFF. VOIDED CLEAR YELLOW URINE WITHOUT DIFFICULTY. SKIN CARE PER STAFF. REFUSED TO EAT ANY BREAKFAST THIS AM BUT DRANK ALMOST ALL OF ENSURE WITH MEDS. WILL MONITOR.
--- NOTE | 2016-11-23 10:37 | NUR ---
INCONTINENT SMALL AMOUNT OF URINE. LINENS CHANGED. REPOSITIONED IN BED FOR COMFORT. SKIN CARE PER STAFF.
--- NOTE | 2016-11-23 14:15 | NUR ---
FIRST UNIT PRBC UP AT THIS TIME. VS WNL. REFUSED TO EAT ANY LUNCH. DRANK PART OF ENSURE.
--- NOTE | 2016-11-23 14:33 | NUR ---
TRANSFUSION CONTINUES WITHOUT COMPLICATIONS. VSS.
--- NOTE | 2016-11-23 14:45 | NUR ---
HAD 2 EPISODES OF LOOSE MELVIN DARK STOOL. SKIN CARE PER STAFF. TRANSFUSION CONTINUES. BP UP SLIGHTLY. RATE DECREASED TO 100CC HOUR. WILL CONTINUE TO MONITOR.
--- NOTE | 2016-11-23 16:39 | NUR ---
TRANSFUSION CONTINUES WITHOUT DIFFICULTY. VSS.
--- NOTE | 2016-11-23 17:45 | NUR ---
FIRST UNIT PRBC COMPLETED. VSS. NO REACTIONS TO TRANSFUSION.
--- NOTE | 2016-11-23 18:00 | NUR ---
SECOND UNIT PRBC UP AT THIS TIME. VSS. REFUSED TO EAT ANY SUPPER. DENIES NEEDS. NO CHANGES NOTED.
--- NOTE | 2016-11-23 18:47 | NUR ---
INCONTINENT OF URINE. SKIN CARE PER STAFF. TRANSFUSION CONTINUES WITHOUT COMPLICATIONS. DENIES NEEDS.
--- NOTE | 2016-11-23 19:58 | NUR ---
CHANGED PATIENT'S GOWN AND LINENS WITH LC LOPEZ AFTER INCONTINENT EPISODE. PATIENT DENIES OTHER NEEDS AT THIS TIME. BED IN LOWEST POSITION, CALL LIGHT WITHIN REACH, AND BED ALARM ON. ENCOURAGED THE PATIENT TO CALL IF SHE HAS OTHER NEEDS.
--- NOTE | 2016-11-23 21:30 | NUR ---
CHANGED PATIENT WITH LC LOPEZ AFTER INCONTINENT EPISODE
--- NOTE | 2016-11-23 22:45 | NUR ---
PLACED NINA PER DR. IVY'S ORDERS
[2016-11-24] VITALS: BP 112/65
[2016-11-24 04:00] VITALS: BP 122/67
[2016-11-24 06:44] LABS: BASOPHILS 0.1 % (0-2); EOSINOPHILS 2.5 % (0-7); HEMATOCRIT 25.9 % (36.0-48.0); HEMOGLOBIN 8.7 g/dL (12-16); IMMATURE GRANULOCYTES 0.4 % (0-5); LYMPHOCYTES 6.9 % (15-50); MCH 28.7 pg (26.0-34.0); MCHC 33.6 g/dL (31.0-37.0); MCV 85.5 fL (80.0-100.0); MEAN PLATELET VOLUME 9.2 fL (7.4-10.4); NEUTROPHILS 79.1 % (40-80); PLATELET COUNT 514 10x3/uL (130-400); RBC 3.03 10x6/uL (4.00-5.40); WBC 11.2 10x3/uL (4.8-10.8)
[2016-11-24 07:00] LABS: ALBUMIN 1.6 g/dL (3.4-5.0); ALKALINE PHOSPHATASE 75 U/L (46-116); CALC OSMOLALITY 273 mosm/kg (275-300); CALCIUM 7.3 mg/dL (8.5-10.1); CHLORIDE - SERUM 103 mmol/L (98-107); CREATININE - SERUM 0.4 mg/dL (0.6-1.3); GLUCOSE 107 mg/dL (74-106); PROTEIN - SERUM 4.9 g/dL (6.4-8.2); SODIUM 138 mmol/L (136-145); UREA NITROGEN 6 mg/dL (7-18); eGFR NON AFRICAN AMERICAN > 90 mL/min (90-120)
[2016-11-24 07:04] LABS: ALT (SGPT) 16 U/L (10-68); CARBON DIOXIDE 28.8 mmol/L (21.0-32.0); POTASSIUM - SERUM 3.9 mmol/L (3.5-5.1)
--- NOTE | 2016-11-24 07:30 | NUR ---
AWAKE AND ALERT. ORIENTED X3. NO C/O AT THIS TIME. APPEARS TO BE VERY DOWN TODAY STATED SHE WAS READY FOR THIS TO BE OVER. HAD LONG DISSCUSSION RE PROBABLE OUTCOMES. LUNGS ARE CLEAR BILATERALLY, NO COUGH NOTED. SKIN IS INTACT WITHOUT REDNESS EXCEPT INCISION TO RIGHT HIP WHICH HAS A DRY INTACT DRESSING IN PLACE. LEFT PORT IS PATENT WITHOUT REDNESS AT INSERTION SITE. FOELY PATNET WITH CLEAR YELLOW URINE. DENIES NEEDS.
--- NOTE | 2016-11-24 09:00 | NUR ---
REFUSED BREAKFAST TRAY BUT DRANK PART OF A MILKSHAKE WE GOT FOR HER. DENIES NEEDS.
--- NOTE | 2016-11-24 12:15 | NUR ---
LUNCH TRAY SERVED IN ROOM. REFUSED TO EAT. FAMILY AT BEDSIDE.
[2016-11-24 13:04] VITALS: BP 100/64
[2016-11-24 15:58] VITALS: BP 116/62
--- NOTE | 2016-11-24 18:11 | NUR ---
ATE 2 BITES OF SUPPER. REFUSED OFFER OF ALTERNATIVE FOODS. NO CHANGES NOTED. DENIES NEEDS.
[2016-11-24 19:00] VITALS: BP 111/62
--- NOTE | 2016-11-24 20:12 | NUR ---
PATIENT RESTING IN BED AND DENIES NEEDS AT THIS TIME. BED IN LOWEST POSITION, CALL LIGHT WITHIN REACH, AND BED ALARM ON. ENCOURAGED THE PATIENT TO CALL IF SHE HAS NEEDS.
[2016-11-25] VITALS: BP 115/64
[2016-11-25 04:00] VITALS: BP 121/67
[2016-11-25 05:41] LABS: BASOPHILS 0.1 % (0-2); EOSINOPHILS 2.7 % (0-7); HEMATOCRIT 24.9 % (36.0-48.0); HEMOGLOBIN 8.3 g/dL (12-16); IMMATURE GRANULOCYTES 0.6 % (0-5); LYMPHOCYTES 7.6 % (15-50); MCH 28.5 pg (26.0-34.0); MCHC 33.3 g/dL (31.0-37.0); MCV 85.6 fL (80.0-100.0); MEAN PLATELET VOLUME 8.7 fL (7.4-10.4); MONOCYTES 10.1 % (2-11); NEUTROPHILS 78.9 % (40-80); PLATELET COUNT 475 10x3/uL (130-400); RBC 2.91 10x6/uL (4.00-5.40); RDW 13.9 % (11.5-14.5)
[2016-11-25 05:42] LABS: WBC 8.2 10x3/uL (4.8-10.8)
[2016-11-25 06:02] LABS: ALBUMIN 1.5 g/dL (3.4-5.0); ALKALINE PHOSPHATASE 70 U/L (46-116); ALT (SGPT) 15 U/L (10-68); CALC OSMOLALITY 271 mosm/kg (275-300); CALCIUM 7.1 mg/dL (8.5-10.1); CHLORIDE - SERUM 102 mmol/L (98-107); CREATININE - SERUM 0.4 mg/dL (0.6-1.3); POTASSIUM - SERUM 3.5 mmol/L (3.5-5.1); PROTEIN - SERUM 5.3 g/dL (6.4-8.2); SODIUM 135 mmol/L (136-145); UREA NITROGEN 6 mg/dL (7-18); eGFR NON AFRICAN AMERICAN > 90 mL/min (90-120)
[2016-11-25 06:03] LABS: GLUCOSE 167 mg/dL (74-106)
--- NOTE | 2016-11-25 07:50 | NUR ---
PT UP EATING BREAKFAST, DENIES NEEDS, CALL LIGHT IN REACH, BED LOWEST POSITION, WILL CONTINUE TO MONITOR
--- NOTE | 2016-11-25 08:04 | NUR ---
LYING SUPINE AT THIS TIME WITH RESPIRATIONS EVEN AND NON LABORED. CALL LIGHT IN REACH, DENIES NEEDS AT THIS TIME. WILL CONTINUE WITH PLAN OF CARE.
[2016-11-25 09:26] VITALS: BP 113/61
[2016-11-25] MEDS ORDERED: ELIQUIS2.5 MG PO (09:32)
[2016-11-25] MEDS ORDERED: ROBAXIN500 MG PO (09:32)
[2016-11-25] MEDS ORDERED: DURAGESIC1 PATCH .7 TRANSDERM (09:33)
[2016-11-25] MEDS ORDERED: NALOXONE HC0.4 MG/M2 IV (09:33)
[2016-11-25] MEDS ORDERED: LOVENOX30 MG/0.3 SC (09:33)
[2016-11-25] MEDS ORDERED: IBUPROFEN200 MG PO (09:34)
[2016-11-25] MEDS ORDERED: ONDANSETRON4 MG/2 M3 IV (09:34)
[2016-11-25] MEDS ORDERED: K-DUR20 MEQ PO (09:34)
[2016-11-25] MEDS ORDERED: SENNA8.6 MG PO (09:34)
[2016-11-25] MEDS ORDERED: MIRALAX17 GM PO (09:34)
--- NOTE | 2016-11-25 12:07 | NUR ---
Rehab Note- Acute rehab Prescreen order received. Visited with the patient, states she feels she can participate in the required therapy, as she has been in acute rehab recently. Asked about her pain tolerance, stated she's nt been using her INTERNAL GRINDER. Spoke with EBEN Aguila about changing pain med over to po from INTERNAL GRINDER, stated would address with Ana Rosa. Will plan to admit to [facility] acute rehab when ready for discharge from the acute hospital. Thank you fr this referral! Priyanka Baum RN Clinical Liaison, [facility] Rehab
[2016-11-25 12:47] VITALS: BP 96/54
--- NOTE | 2016-11-25 16:29 | NUR ---
DISCHARGE INSTRUCTIONS GIVEN TO PT, QUESTIONS ANSWERED, L PORT FLUSHED, DISCHARGED TO REHAB PER BED WITH BELONGINGS
== END 2016-11-25 16:30 | DRG 481 ==
LOC: D.MS 15:52
PROVIDERS: Emergency Medicine; General Practice; ADMIT Family Medicine
PROC: 0BBK3ZX Excision of Right Lung, Percutaneous Approach, Diagnostic (ICD-10-PCS; principal; 2016-11-14 08:54)
PROC: 04L Lower Arteries, Occlusion (ICD-10-PCS; 2016-11-20)
PROC: 0QH636Z Insertion of Intramedullary Internal Fixation Device into Right Upper Femur, Percutaneous Approach (ICD-10-PCS; 2016-11-21)
DX: M84.551A Pathological fracture in neoplastic disease, right femur, initial encounter for fracture (principal); C79.51 Secondary malignant neoplasm of bone; C34.91 Malignant neoplasm of unspecified part of right bronchus or lung; Z68.1 Body mass index [BMI] 19.9 or less, adult; M84.58XA Pathological fracture in neoplastic disease, other specified site, initial encounter for fracture; M81.0 Age-related osteoporosis without current pathological fracture; R15.9 Full incontinence of feces; Z66 Do not resuscitate; R63.0 Anorexia; R41.82 Altered mental status, unspecified; T40.7X5A Adverse effect of cannabis (derivatives), initial encounter

== ENCOUNTER 2016-11-25 16:37 | Inpatient (IN) | payer MEDICARE ==
[~2016-11-25] VITALS: Ht 170.2 cm; Wt 57.6 kg
[~2016-11-25 16:37] MED LIST changes: +DURAGESIC1 PATCH .7 TRANSDERM; +ELIQUIS2.5 MG PO; +IBUPROFEN200 MG PO; +K-DUR20 MEQ PO; +LOVENOX30 MG/0.3 SC; +MIRALAX17 GM PO; +NALOXONE HC0.4 MG/M2 IV; +ROBAXIN500 MG PO; +SENNA8.6 MG PO
--- NOTE | 2016-11-25 19:25 | NUR ---
PT. IN BED WITH HOB UP FOR COMFORT WITH EYES CLOSED AND RESP. EVEN. NINA TO BSD WITHOUT PROBLEMS. PT. AWAKENS EASILY AND I INFORMED HER OF THE ADMISSION PROCESS AND SHE WAS AGREEABLE. CALL LIGHT WITHIN REACH IF SHE NEEDED ANYTHING.
[2016-11-25 21:45] VITALS: BP 116/51
--- NOTE | 2016-11-25 23:00 | NUR ---
ADMISSION PROCESS COMPLETED. PT. JUST WANTS TO GO TO SLEEP NOW. PT. INFORMED ME DURING ADMISSION PROCESS THAT SHE IS READY TO AND NOT BE HERE. ASKED HER WHAT SHE MENT BY THAT AND SHE SAID SHE WAS GOING TO SPEAK TO HER TOMORROW ABOUT HOSPICE. VERIFIED WITH PT. THAT THAT IS WHAT SHE MENT AND SHE SAID "YES. 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 IS IN SEVERE PAIN ANY TIME SHE MOVES OR IF YOU TOUCH ANY PART OF THE BED OR HER COVERS. WILL CONTINUE TO MONITOR. PT'S CALL LIGHT WITHIN REACH.
[2016-11-25 23:29] VITALS: BP 108/61; BMI 19.9
--- NOTE | 2016-11-26 03:00 | NUR ---
PT. IN BED WITH HOB UP FOR COMFORT WITH EYES CLOSED AND RESP. EVEN. NINA TO BSD WITHOUT PROBLEMS. CALL LIGHT WITHIN REACH
[2016-11-26 05:32] LABS: BASOPHILS 0.1 % (0-2); EOSINOPHILS 4.3 % (0-7); HEMATOCRIT 24.9 % (36.0-48.0); HEMOGLOBIN 8.1 g/dL (12-16); IMMATURE GRANULOCYTES 0.9 % (0-5); LYMPHOCYTES 9.9 % (15-50); MCHC 32.5 g/dL (31.0-37.0); MCV 86.2 fL (80.0-100.0); MEAN PLATELET VOLUME 8.9 fL (7.4-10.4); MONOCYTES 11.8 % (2-11); RBC 2.89 10x6/uL (4.00-5.40); RDW 13.9 % (11.5-14.5)
[2016-11-26 05:33] LABS: PLATELET COUNT 599 10x3/uL (130-400)
[2016-11-26 05:42] LABS: CALC OSMOLALITY 270 mosm/kg (275-300); CALCIUM 7.4 mg/dL (8.5-10.1); CARBON DIOXIDE 25.9 mmol/L (21.0-32.0); CHLORIDE - SERUM 105 mmol/L (98-107); CREATININE - SERUM 0.4 mg/dL (0.6-1.3); POTASSIUM - SERUM 3.8 mmol/L (3.5-5.1); SODIUM 137 mmol/L (136-145); UREA NITROGEN 5 mg/dL (7-18); eGFR NON AFRICAN AMERICAN > 90 mL/min (90-120)
[2016-11-26 05:46] LABS: GLUCOSE 105 mg/dL (74-106)
[2016-11-26 08:33] VITALS: BP 119/58
--- NOTE | 2016-11-26 09:39 | NUR ---
WORKING WITH Irene
--- NOTE | 2016-11-26 10:03 | NUR ---
RECIEVED UP IN BED WITH EYES OPEN AND TV ON. PLEASANT AND COOPERATIVE. DENIES ANY PAIN AT THIS TIME. CALL LIGHT IN REACH.
--- NOTE | 2016-11-26 11:20 | NUR ---
patient admitted to rehab from acute floor. DME at home walker, shower chair and bedside commode. pcp is Dr. Berger in [place]. [facility] in [facility] is her pharmacy. She is a client of [facility]. Spoke with her this am and she feels that she is unable to do 3 hours of therapy. She is trying to reach her as she wants to go home. She has mentioned hospice with her nurse this am. will continue to follow with patient and will discuss hospice.
[2016-11-26 14:07] VITALS: Ht 170.2 cm; Wt 57.6 kg
--- NOTE | 2016-11-26 14:48 | NUR ---
SPOKE WITH AND PATIENT AND THEY HAVE CHOSEN [facility] AND INFORMATION GIVEN FOR CARE GIVERS.REFERRLA HAS BEEN FAXED
[2016-11-26 19:23] VITALS: BP 121/66
[2016-11-26 20:04] VITALS: BP 121/66
--- NOTE | 2016-11-26 21:10 | NUR ---
RESTING IN BED WITH EYES CLOSED. EASILY AROUSES WITH VERBAL STIMULI. NO S/S OF DISTRESS OBSERVED. CALL LIGHT AND OVERBED TABLE IM REACH.
--- NOTE | 2016-11-27 06:40 | NUR ---
WHEN ENTERING ROOM TO GIVE MEDICATION THIS MORNING PT WAS ATTEMPTING TO GET RID OF HER F/C. PULLED SURE LOCK OFF OF HER LEG AND HAD TUBING UNDER HER LEG. EDUCATED HER ON THE NEED TO HAVE F/C AT THIS TIME. APPEARED TO BED UNDERSTANDING.
--- NOTE | 2016-11-27 08:21 | NUR ---
SITTING UP IN BED EATING BREAKFAST. C/O PAIN AT PRESENT. MAX ASST. F/C PATENT WITH CLOUDY URINE NOTED. DSG INTACT TO RT HIP.
[2016-11-27] MEDS ORDERED: OXYCODONE HCL5 MG PO (08:50)
[2016-11-27 08:55] VITALS: BP 105/58
[2016-11-27] MEDS ORDERED: DURAGESIC1 PATCH .7 TRANSDERM (09:07)
--- NOTE | 2016-11-27 12:19 | NUR ---
RESTING IN BED, HAS OVER HEAD FRAME IN PLACE FOR MOTION ASST. C/O PAIN TO RT HIP IF LEG IS MOVED. LIMITED ABILITY TO MOVE UPPER BODY WITH OUT HURTING IN HIPS.
--- NOTE | 2016-11-27 14:20 | NUR ---
D/C HOME WITH HOSPICE. ALL PERSONAL BELONGINGS SENT WITH PT. LEFT CHEST BALTAZAR NEEDLE D/C FROM PORT PRIOR TO D/C. STILL ORIENTED X4. F/C PATENT. PAPERWORK SENT WITH PT FOR HOME AND [facility] NOTIFIED OF PT D/C.
--- NOTE | 2016-11-27 16:26 | NUR ---
PATIENT HAS DISCHARGED HOME WITH SPOUSE. SHE WILL BE FOLLOWED BY [facility].
--- NOTE | 2016-12-03 18:07 | RHP ---
PATIENT: DEBBY WRIGHT MEDICAL RECORD: [id number] ACCOUNT: [id number] LOCATION:[facility]1118 : 40 ADMISSION DATE: 11/25/16 REHABILITATION HISTORY AND PHYSICAL EXAMINATION POST ADMISSION PHYSICIAN EXAMINATION Post-Admission Physical Examination and History and Physical DATE OF ADMISSION TO THE REHABILITATION: 11/25/2016 ADMITTING DIAGNOSIS: Status post gamma nail of a right hip pathological fracture. HISTORY OF PRESENT ILLNESS: The patient is admitted to inpatient rehab for orthopedic reason, she is status post unilateral hip fracture, status post gamma nail for a pathologic fracture. She is a 76-year-old female patient, who presents to [facility] secondary to back pain, status post kyphoplasty during her acute rehab stay. Results from pathology showed metastatic bone cancer, oncology was consulted. She was found to have pathological fracture to the right femur due to the tumor that require rodding. She has been on a REPRODUCTION TECHNICIAN for pain management, states that she has not been using it upon interview. She has a port placed to the left subclavian area. She is currently on 3 liters nasal cannula for O2 requirement. She lives at home with her , was independent with her mobility and ADLs prior to this hospitalization. She plans to go forward with treatment for a new diagnosis of CA, but needs to recover from this recent hip surgery. She is currently set up from max assist for ADLs and max assist to total assist for mobility. She plans to return home with her at prior level of functioning. COMORBIDITIES: In this patient include nonsmall cell lung cancer with metastatic bone involvement, carcinoma of the spinal column, T12 compression fracture, chronic osteoporosis, anemia, chronic pain and depression. PAST MEDICAL HISTORY: Significant for osteoporosis, chronic back pain and smoker. PAST SURGICAL HISTORY: Includes cataract surgery, right meniscal repair and kyphoplasty. ALLERGIES: No known drug allergies. CURRENT MEDICATIONS: She is on a Duragesic patch 25 mcg daily, potassium 20 mEq daily, she is on Protonix 40 mg daily, TriCor, 48 mg daily, Lovenox 30 mg subQ daily, Senna 2 tabs at bedtime p.r.n., Percocet 5/325 one and a half tabs every 6 hours p.r.n., Zofran 4 mg q.4 hours p.r.n., Narcan p.r.n. protocol, she is on Robaxin 500 mg t.i.d., ibuprofen 200 mg q.6 hours p.r.n., Colace 100 mg b.i.d., Dulcolax suppositories 10 mg q.6 hours p.r.n., Eliquis 2.5 mg b.i.d., and polyethylene glycol 17 g in 8 ounces of water daily. HABITS: Does have a history of tobacco use. FAMILY HISTORY: Noncontributory. SOCIAL HISTORY: The patient once again is going to get treated for this, hopefully will return home with her . HISTORY AND PHYSICAL [id number] DEBBY WRIGHT REVIEW OF SYSTEMS: GENERAL: Does complain of weakness. HEENT: She denies cold, cough, or congestion. CARDIOVASCULAR: Denies chest pain. PHYSICAL EXAMINATION: VITAL SIGNS: Stable, afebrile. GENERAL: Elderly female in no acute distress, alert upon exam. HEENT: Normocephalic and atraumatic. Mucosa moist. NECK: Supple. No lymphadenopathy. LUNGS: Clear at this time. HEART: Regular rate and rhythm. ABDOMEN: Benign. EXTREMITIES: No clubbing, cyanosis, or edema. NEUROLOGIC: Intact. Postoperatively, her hip looks well. LABORATORY DATA: Her white count is 9.0, H&H 8.1 and 24.9, and platelet count is 599. Her sodium is 137, potassium 3.8, BUN and creatinine of 5 and 0.4 and blood sugar is noted to be 105. ASSESSMENT: This is a 76-year-old female patient admitted to rehab with a working diagnosis of status post gamma nail to hip. The patient has potential to make improvement. We instituted the following multidisciplinary therapies including to, but not limited to physical, occupational, respiratory, speech, nutritional services, prosthetics and orthotics. Given her complex condition and risks for more complications, rehabilitation services cannot be provided at a lower level of care such as a penitentiary facility. PLAN: 1. Admit to [facility] rehab for intensive inpatient therapy to include the following disciplines: A. Physical therapy to improve gait, all transfer skills and bed mobility to a modified independent level. B. Occupational therapy to improve activities of daily living to a modified independent level. C. Case management to assist with discharge planning and placement options. D. Nutrition to assist with nutritional needs. E. Rehabilitation nursing to assist in monitoring the patient's underlying medical conditions and to assist with any type of bowel or bladder management. 2. The patient's current medication and medical care will be continued. 3. The patient will be placed on standard fall precautions. 4. The patient's estimated length of stay is approximately 7-10 days. 5. Discuss this patient during care team staff meeting this week. 6. We will discuss with case management. The patient does have concerns about possibly going on hospice. We will follow up her wishes. TRANSINT:[id number] Voice Confirmation ID: [id number] DOCUMENT ID: [id number] ESTRELLITA notes whether there has been none or any medical/functional change since admission: - No change since prescreen. HISTORY AND PHYSICAL [id number] DEBBY WRIGHT attests patient continues to be appropriate for IRF: - Continues to be appropriate. ELLE PERDOMO MD at 1807 CC: [id number] DICTATION DATE: 11/26/16 1545 DELIVERY HELPER: 11/26/16 1709 DIS IN 11/27/16 [id number] [place] [address]
== END 2016-11-27 14:20 | disposition home health service (06) | DRG 560 ==
LOC: D.REHAB 16:37
PROVIDERS: ADMIT Emergency Medicine
DX: M84.459D Pathological fracture, hip, unspecified, subsequent encounter for fracture with routine healing (principal); C34.90 Malignant neoplasm of unspecified part of unspecified bronchus or lung; C79.51 Secondary malignant neoplasm of bone; M81.0 Age-related osteoporosis without current pathological fracture; D64.9 Anemia, unspecified; G89.29 Other chronic pain; F32.9 Major depressive disorder, single episode, unspecified